=== PATIENT | male | born 1995 | race Caucasian/White ===

== ENCOUNTER 2019-11-16 08:53 | Outpatient (CLI) | payer BC, SELFPAY ==
--- NOTE | ~2019-11-16 | XR_ITS ---
EXAMINATION: XR abdomen/kub 1V INDICATION: Calculus of kidney TECHNIQUE: Supine views of the abdomen were obtained on 2 radiographs. COMPARISON: 06/17/2019 FINDINGS: Bowel contents project over the kidneys limiting sensitivity for renal stones. The previous ly described faint right kidney stone is not definitely identified. A moderate volume of colonic stoo l is present. There are no dilated loops of bowel. IMPRESSION: 1. No definite urinary tract calculi seen. Reviewed, dictated and finalized at location A. [place]
== END 2019-11-16 08:54 | disposition home or self-care (01) ==
LOC: ANHIMG 08:58
PROVIDERS: PCP Internal Medicine; Visit Provider Urology
DX: N20.0 Calculus of kidney (principal)
CPT/HCPCS: 74018

== ENCOUNTER 2020-03-16 03:32 | Emergency (ER) | payer BC, SELFPAY ==
--- NOTE | ~2020-03-16 | CT_ITS ---
EXAMINATION: CT abdomen pelvis wo con DATE: 03/16/2020 04:47 INDICATION: Left flank pain for one day. Nausea and vomiting. History of kidney stones. TECHNIQUE: Computed tomography (CT) of the abdomen and pelvis was performed without intravenous contr ast. Automated exposure control and iterative reconstruction technique were employed. Exam dose: 605 .21 mGy-cm total exam DLP. COMPARISON: 11/29/[address] abdomen pelvis FINDINGS: The lung bases are clear of infiltrate or consolidation. No pericardial or pleural effusion . No hepatic, splenic, pancreatic, adrenal or renal space-occupying mass lesion is evident. Mild spleno megaly, spleen measuring up to 14.1 cm height. The gallbladder is present. No bile duct or pancreatic duct dilatation. There are 2 punctate nonobstructing right renal stones. There is a 5.5 x 8 mm obstructing stone of the left ureter at the L4 level with moderate proximal hyd roureteronephrosis. Small fat-containing umbilical hernia. No suspicious osteolytic or osteoblastic lesions are noted. There are shotty nonenlarged mesenteric lymph nodes. Normal caliber of the abdominal aorta. The urinary bladder is unremarkable. No bowel obstruction or intraperitoneal free air. No CT evidence of appendicitis. IMPRESSION: 5.5 x 8 mm obstructing stone of the left ureter at L4 level with moderate proximal left hydroureteronephrosis Nonobstructive right nephrolithiasis Mild splenomegaly Reviewed, dictated and finalized at Location A. Reviewed, dictated and finalized at location A. IMPRESSION: 5.5 x 8 mm obstructing stone of the left ureter at L4 level with m oderate proximal left hydroureteronephrosis Nonobstructive right nephrolithiasis Mild splenomegaly
[2020-03-16 03:38] VITALS: BP 153/87; PULSE 74; RESP 19; TEMP 36.2; O2SAT 100
--- NOTE | 2020-03-16 03:44 | ED.GENADULT ---
HPI - General Adult General Chief complaint: Abdominal Pain Stated complaint: another kidney stone attack Time Seen by Provider: 03/16/20 03:38 History of Present Illness HPI narrative: Patient is a 24-year-old male who presents ER with left-sided flank pain. Began yesterday. Try to get in with urology but did not hear back. Symptoms have increased tonight and are causing him to be very nauseated. Had some mild chills when vomiting. No fevers/sweats/urinary frequency/urgency. No blood in urine. No aggravating or alleviating factors. Related Data Allergies Allergy/AdvReac Type Severity Reaction Status Date / Time No Known Allergies Allergy Unknown Verified 07/11/19 18:59 No Known Allergies Allergy Uncoded 07/11/19 18:59 Review of Systems Review of Systems: All systems reviewed & are unremarkable except as noted in HPI and below Constitutional: Constitutional: Reports chills, Denies fever(s) and Denies weakness Gastrointestinal: Gastrointestinal: Reports abdominal pain, Reports nausea and Reports vomiting Genitourinary: Genitourinary: Denies hematuria, Denies dysuria and Denies urinary frequency PMFSH Past Medical History Medical History (Updated 03/16/20 @ 06:07 by Nayan Dugan MD) Kidney stones Surgical History Surgical History (Updated 03/16/20 @ 03:51 by Nayan Dugan MD) No pertinent past surgical history Social History Social History (Updated 03/16/20 @ 03:51 by Nayan Dugan MD) Smoking status: Never smoker Gender identity (if verbalized by the patient): Male Exam Narrative: Exam Narrative: GENERAL: Uncomfortable-appearing, well-nourished, and in no acute distress. HEAD: Normocephalic, atraumatic. CHEST: Clear to auscultation. No respiratory distress. HEART: Regular rate and rhythm. Normal peripheral pulses. ABDOMEN: Soft, nontender, nondistended. EXTREMITIES: Normal range of motion. No edema. NEURO: Alert and oriented x3. PSYCH: Normal mood and affect. Course Course Emergency Course: Pain improved with morphine and Dilaudid. Feels comfortable with discharge. Informed of results. Vital Signs Vital signs: Vital Signs Temperature 97.1 F L 03/16/20 03:38 Pulse Rate 74 03/16/20 03:38 Respiratory Rate 19 03/16/20 03:38 Blood Pressure 153/87 H 03/16/20 03:38 Pulse Oximetry 100 03/16/20 03:38 Temperature 97.1 F L 03/16/20 03:38 Pulse Rate 59 L 03/16/20 06:01 Respiratory Rate 18 03/16/20 06:01 Blood Pressure 134/71 03/16/20 06:01 Pulse Oximetry 100 03/16/20 06:01 Medical Decision Making Vital Signs Vital Signs: Vital Signs Temperature 97.1 F L 03/16/20 03:38 Pulse Rate 74 03/16/20 03:38 Respiratory Rate 19 03/16/20 03:38 Blood Pressure 153/87 H 03/16/20 03:38 Pulse Oximetry 100 03/16/20 03:38 Temperature 97.1 F L 03/16/20 03:38 Pulse Rate 59 L 03/16/20 06:01 Respiratory Rate 18 03/16/20 06:01 Blood Pressure 134/71 03/16/20 06:01 Pulse Oximetry 100 03/16/20 06:01 Lab Data Result diagrams: 03/16/20 03:47 03/16/20 03:48 Labs: Lab Results 03/16/20 03/16/20 03/16/20 Range/Units 03:47 03:48 03:48 WBC 5.6 (4.5-10.0) K/mm3 RBC 5.11 (4.6-6.20) M/mm3 Hgb 14.7 (14.0-18.0) g/dL Hct 42.5 (42.0-52.0) % MCV 83.2 (80-100) fl MCH 28.8 (26-34) pg MCHC 34.6 (32-36) g/dl RDW 12.9 (11.5-14.5) % Plt Count 283 (150-375) k/mm3 MPV 9.3 (7.4-10.4) fl Immature Gran % (Auto) 0.2 (0-0.5) % Neut % (Auto) 54.2 (45.5-73.1) % Lymph % (Auto) 29.4 (18.3-44.2) % Gem % (Auto) 13.0 H (2.6-8.5) % Eos % (Auto) 2.8 (0-4.4) % Baso % (Auto) 0.4 (0.2-1.2) % Lymph # (Auto) 1.65 (0.9-3.2) K/mm3 Gem # (Auto) 0.7 H (0.1-0.6) K/mm3 Eos # (Auto) 0.2 (0-0.3) K/mm3 Baso # (Auto) 0.0 (0.0-0.1) K/mm3 Abs Immat Gran (auto) 0.01 (0.00-0.031) K/mm3 Absolute Neuts (auto) 3.1 (1.3-6.7) K/mm3 A
[2020-03-16] MEDS: SODIUM CHLORIDE 0.9% IV 1,000 ML 999 ML IV CONT (03:45)
[2020-03-16] MEDS: ONDANSETRON INJ 4 MG/2 ML VIAL IV PUSH (03:45)
[2020-03-16] MEDS: MORPHINE SULFATE 4 MG/ML INJ IV PUSH (03:45)
[2020-03-16 03:56] LABS: Basophils Percent Auto 0.4 % (0.2-1.2); Eosinophils Absolute Auto 0.2 K/mm3 (0-0.3); Eosinophils Percent Auto 2.8 % (0-4.4); Hematocrit 42.5 % (42.0-52.0); Hemoglobin 14.7 g/dL (14.0-18.0); Immature Granulocyte Absolute 0.01 K/mm3 (0.00-0.031); Immature Granulocyte Percent A 0.2 % (0-0.5); Lymphocytes Absolute Auto 1.65 K/mm3 (0.9-3.2); Lymphocytes Percent Auto 29.4 % (18.3-44.2); Mean Corpuscular HGB Conc 34.6 g/dl (32-36); Mean Corpuscular Hemoglobin 28.8 pg (26-34); Mean Corpuscular Volume 83.2 fl (80-100); Mean Platelet Volume 9.3 fl (7.4-10.4); Monocytes Absolute Auto 0.7 K/mm3 (0.1-0.6); Neutrophils Absolute Auto 3.1 K/mm3 (1.3-6.7); Neutrophils Percent Auto 54.2 % (45.5-73.1); Platelet Count Result 283 k/mm3 (150-375); Red Blood Count 5.11 M/mm3 (4.6-6.20); Red Cell Distribution Width 12.9 % (11.5-14.5); White Blood Count 5.6 K/mm3 (4.5-10.0)
[2020-03-16 04:08] LABS: Add Urine Microscopic? YES; Alanine Aminotransferase 23 U/L (4-50); Albumin Level 4.3 g/dL (3.5-5.1); Alkaline Phosphatase 79 U/L (38-126); Appearance Urine Clear (Clear); Aspartate Amino Transferase 27 U/L (17-59); Bilirubin Urine Negative (Negative); Bilirubin,Total 0.5 mg/dL (0.2-1.3); Blood Urea Nitrogen 14 mg/dL (9-20); Blood Urine 3+ (Negative); Calcium 8.7 mg/dL (8.4-10.2); Calcium Oxalate Crystals Urine Present /hpf; Carbon Dioxide 29 mmol/L (22-30); Chloride 103 mmol/L (98-107); Color Urine Yellow (Yellow); Estimated CRCL calculation 155 ml/min; Estimated Glomerular Filt Rate > 60; Glucose 114 mg/dL (75-110); Glucose Urine UA Negative (Negative); Ketones Urine Negative (Negative); Leukocyte Esterase Ur Negative LEU/UL (Negative); Lipase 283 U/L (23-300); Mucus Urine Few /lpf; Nitrate Urine Negative (Negative); Potassium 3.5 mmol/L (3.4-5.0); Protein Urine 2+ mg/dL (Negative); RBC Urine >75 /hpf (0-2); Sodium 138 mmol/L (137-145); Specific Grav Ur 1.027 (1.001-1.035); Squamous Epithelial Cell Urine Rare /hpf (Few); Urobilinogen Urine Negative mg/dL (<2.0); WBC Urine 0-3 /hpf
[2020-03-16 05:05] VITALS: BP 152/77; PULSE 62; RESP 19; O2SAT 100
[2020-03-16 05:38] VITALS: BP 154/76; PULSE 71; RESP 18; O2SAT 100
[2020-03-16 06:01] VITALS: BP 134/71; PULSE 59; RESP 18; O2SAT 100
[2020-03-16 06:34] VITALS: BP 144/80; PULSE 62; RESP 19; TEMP 37; O2SAT 100
== END 2020-03-16 06:35 | disposition home or self-care (01) ==
PROVIDERS: Emergency Provider Emergency Medicine; PCP Internal Medicine
DX: N13.2 Hydronephrosis with renal and ureteral calculous obstruction (principal); R16.1 Splenomegaly, not elsewhere classified
CPT/HCPCS: 36415; 74176; 80053; 81001; 83690; 85025; 96361; 96374; 96375; 99284; J1170; J2270; J2405; J2550; J7030

== ENCOUNTER 2020-03-17 01:45 | Day surgery (SDC) | payer BC, SELFPAY ==
[2020-03-16 15:00] VITALS: BMI 33.5
--- NOTE | 2020-03-16 15:45 | P.HP_ITS ---
History of Present Illness History of Present Illness Consent: Risks, benefits, and alternatives have been discussed and questions answered. Patient agrees to proceed with procedure. Chief complaint: left kidney stone Narrative: Jomar Lambert is a 24 year old male well know to me with multiple recurrent renal and ureteral stones. After a 3-day diarrhea illness with dehydration he presents with an 8mm left proximal ureteral stone. Review of Systems Cardiovascular: Cardiovascular: Denies chest pain, Denies lightheadedness, Denies palpitations and Denies dyspnea Respiratory: Respiratory: Denies dyspnea Gastrointestinal: Gastrointestinal: Denies diarrhea, Denies nausea and Denies vomiting Genitourinary: Genitourinary: Denies hematuria and Denies dysuria Endocrine: Endocrine: Denies palpitations PMFSH Past Medical History Medical History Kidney stones Surgical History Surgical History No pertinent past surgical history Social History Social History Smoking status: Never smoker Gender identity (if verbalized by the patient): Male Meds Home Medications and Allergies Home Medications Medication Instructions Recorded Confirmed Type hydrocodone-acetaminophen 1 tablet PO Q6H PRN #20 tablet 03/16/20 03/16/20 Rx ondansetron 4 mg PO Q6H PRN #10 tablet 03/16/20 03/16/20 Rx tamsulosin 0.4 mg PO DAILY #7 cap 03/16/20 03/16/20 Rx Allergies Allergy/AdvReac Type Severity Reaction Status Date / Time No Known Allergies Allergy Unknown Verified 03/16/20 15:01 Exam Const: General: no acute distress Resp: Effort & Inspection: normal respiratory effort GI: Inspection: non-distended GI Palp: No abdominal tenderness and No Guarding due to palpation present (GI) Auscultation: normal bowel sounds Assessment and Plan Assessment and plan (1) Ureterolithiasis: Code(s): N20.1 - Calculus of ureter Status: Acute Assessment and Plan: * Left ESWL
[2020-03-17] VITALS (7 sets, daily range): BP systolic 129–144; BP diastolic 62–79; PULSE 55–77; RESP 14–20; TEMP 36.3; O2SAT 98–100
--- NOTE | ~2020-03-17 | XR_ITS ---
EXAMINATION: XR abdomen/kub 1V DATE: 03/17/2020 08:43 INDICATION: Left ureteral stone for preoperative evaluation for planned lithotripsy. TECHNIQUE: A supine view of the abdomen on 2 radiographs was obtained. COMPARISON: CT dated 03/16/2020 FINDINGS: 7 x 3 mm left ureteral stone has advanced, now located in the distal ureter projecting slightly later al to the lower sacrum. Normal bowel gas pattern. Bone island in the right innominate bone. IMPRESSION: 1. 7 x 3 mm left renal stone has advanced, now in the distal ureter. Reviewed, dictated and finalized at location A.
--- NOTE | 2020-03-17 06:48 | WPDHPUPDATE1 ---
History and Physical Update Update Date/Time: 03/17/20 06:48 History and Physical has been reviewed, including an updated exam of the patient. There are NO changes in the patient's condition. Risks, benefits, and alternatives have been discussed and questions answered. Patient agrees to proceed with procedure.
--- NOTE | 2020-03-17 07:47 | WPDANESEPPF ---
Anes - Initial Pre Proc Eval Procedure: Operation Date: 03/17/20 10:30 Proposed Procedures p Left Extracorporeal Shock Wave Lithotripsy - Arsenio Ewing MD Date/Time: 03/17/20 07:47 Surgeon: Arsenio Ewing MD Pre Op Diagnosis: left kidney stone Patient Data Age: 24 Gender: M Height: 1.8 m Weight: 108.86 kg Allergies Allergy/AdvReac Type Severity Reaction Status Date / Time No Known Allergies Allergy Unknown Verified 03/16/20 15:01 Home Medications Medication Instructions Recorded Confirmed Type hydrocodone-acetaminophen 1 tablet PO Q6H PRN #20 tablet 03/16/20 03/16/20 Rx ondansetron 4 mg PO Q6H PRN #10 tablet 03/16/20 03/16/20 Rx tamsulosin 0.4 mg PO DAILY #7 cap 03/16/20 03/16/20 Rx Patient hx anesthesia problems: none Family hx anesthesia problems: none PMFSH Past Medical History Medical History (Updated 03/17/20 @ 07:49 by Philipp Dickerson MD) CML (chronic myelocytic leukemia) Kidney stones Obesity Surgical History Surgical History No pertinent past surgical history Social History Social History Smoking status: Never smoker Gender identity (if verbalized by the patient): Male Anes - Eval Final PreProcedure Day of Procedure 03/17/20 07:47 Patient weight: obese Heart: regular rate and rhythm Lungs: clear to auscultation and normal air movement Airway: Mallampati scale class II Neurological: alert and oriented Last oral intake: >/= 8 hours ASA classification: III Emergent: no Anesthetic plan: proceed Anesthesia type and monitoring: general LMA Informed Consent: The patient's anesthetic plan and its attendant risks and benefits were discussed with the patient/family/POA. Questions were solicited and answers provided to the satisfaction of the patient/family/POA.
[2020-03-17] MEDS: LACTATED RINGERS 1,000 ML 30 ML IV CONT (09:15)
[2020-03-17 09:44] LABS: INR 1.1; Prothrombin Time 13.6 Seconds (11.1-14.7)
[2020-03-17 09:46] LABS: Partial Thromboplastin Time 33.3 SECONDS (22.3-36.8)
[2020-03-17] MEDS: ceFAZolin 2 GM/D5W 50 ML 2 GM/50 ML BAG IVPB (11:00)
--- NOTE | 2020-03-17 11:20 | PM.PROC ---
Procedure Note - Detailed Date of procedure: 03/17/20 Pre-op diagnosis: left kidney stone Post-op diagnosis: same Procedure performed: Left ESWL Description of procedure: The patient was brought to the operative suite where he was placed in the supine position on the Dornier lithotripsy table. The focal point of the lithotripter was placed at an 8mm left distal ureteral calculus. A total of 3000 shocks were delivered at a power setting of 8. There appeared to be good fragmentation of the stone. The patient tolerated the procedure well and was taken to the recovery room in good condition. Anesthesia: GLMA Surgeon: Arsenio Ewing MD Estimated blood loss (mL): 0 Drains: No Packing: No Pathology: yes Complications: No immediate complications Condition: stable Disposition: PACU
== END 2020-03-17 13:20 | disposition home or self-care (01) ==
PROVIDERS: PCP Internal Medicine; Visit Provider Urology
PROC: (CPT 50590; principal; 2020-03-17 10:30)
DX: N20.2 Calculus of kidney with calculus of ureter (principal)
CPT/HCPCS: 50590; 36415; 74018; 85610; 85730; J0690; J1100; J2250; J2405; J2704; J3010; J7120

== ENCOUNTER 2020-03-30 13:47 | Observation (INO) | payer BC, SELFPAY ==
--- NOTE | ~2020-03-30 | XR_ITS ---
EXAMINATION: XR retrograde pyelo w/stent LT DATE: 03/31/2020 11:55 INDICATION: Left ureteral stone. TECHNIQUE: 6 intraoperative fluoroscopic views of the abdomen and pelvis were obtained. I was not pre sent. Fluoroscopy exposure time was 30 seconds. COMPARISON: Abdomen radiographs 03/30/2020 FINDINGS: There are no dilated loops of bowel. Images demonstrate contrast and a wire in the left ure ter. The final images demonstrate a left internal ureteral stent in expected position. IMPRESSION: 1. Left internal ureteral stent in expected position. Reviewed, dictated and finalized at location A.
--- NOTE | ~2020-03-30 | XR_ITS ---
EXAMINATION: XR abdomen/kub 1V DATE: 03/30/2020 17:13 INDICATION: Kidney stone. Abdominal pain. TECHNIQUE: A supine view of the abdomen on 2 radiographs was obtained. COMPARISON: CT abdomen and pelvis 03/16/2020 FINDINGS: There are no dilated loops of bowel. There is a 5 x 7 mm stone in distal left ureter. IMPRESSION: 1. 5 x 7 mm stone in distal left ureter. Reviewed, dictated and finalized at location A.
[2020-03-30 14:47] VITALS: BP 139/78; PULSE 76; RESP 16; TEMP 37.3; O2SAT 97
[2020-03-30 15:02] LABS: Basophils Percent Auto 0.5 % (0.2-1.2); Eosinophils Absolute Auto 0.2 K/mm3 (0-0.3); Hematocrit 47.3 % (42.0-52.0); Immature Granulocyte Absolute 0.01 K/mm3 (0.00-0.031); Immature Granulocyte Percent A 0.1 % (0-0.5); Lymphocytes Absolute Auto 2.03 K/mm3 (0.9-3.2); Lymphocytes Percent Auto 24.1 % (18.3-44.2); Mean Corpuscular HGB Conc 33.8 g/dl (32-36); Mean Corpuscular Hemoglobin 28.4 pg (26-34); Mean Platelet Volume 9.1 fl (7.4-10.4); Monocytes Absolute Auto 0.8 K/mm3 (0.1-0.6); Monocytes Percent Auto 8.9 % (2.6-8.5); Neutrophils Absolute Auto 5.4 K/mm3 (1.3-6.7); Neutrophils Percent Auto 64.4 % (45.5-73.1); Platelet Count Result 307 k/mm3 (150-375); Red Blood Count 5.63 M/mm3 (4.6-6.20); Red Cell Distribution Width 13.3 % (11.5-14.5); White Blood Count 8.4 K/mm3 (4.5-10.0)
[2020-03-30 15:06] LABS: Add Urine Microscopic? YES; Appearance Urine Clear (Clear); Bacteria Urine Trace /hpf; Bilirubin Urine Negative (Negative); Blood Urine 1+ (Negative); Color Urine Yellow (Yellow); Glucose Urine UA Negative (Negative); Ketones Urine Negative (Negative); Leukocyte Esterase Ur Negative LEU/UL (Negative); Mucus Urine Rare /lpf; Nitrate Urine Negative (Negative); Protein Urine Negative (Negative); Specific Grav Ur 1.019 (1.001-1.035); Urobilinogen Urine Negative mg/dL (<2.0); WBC Urine 0-3 /hpf
[2020-03-30 15:13] LABS: Alanine Aminotransferase 21 U/L (4-50); Albumin Level 4.8 g/dL (3.5-5.1); Alkaline Phosphatase 87 U/L (38-126); Aspartate Amino Transferase 28 U/L (17-59); Bilirubin,Total 0.5 mg/dL (0.2-1.3); Blood Urea Nitrogen 12 mg/dL (9-20); Calcium 9.2 mg/dL (8.4-10.2); Carbon Dioxide 27 mmol/L (22-30); Chloride 103 mmol/L (98-107); Estimated CRCL calculation 140 ml/min; Estimated Glomerular Filt Rate > 60; Glucose 110 mg/dL (75-110); Lipase 58 U/L (23-300); Sodium 139 mmol/L (137-145)
[2020-03-30] MEDS: ONDANSETRON INJ 4 MG/2 ML VIAL (16:17)
--- NOTE | 2020-03-30 16:17 | PC.NURSE ---
Per [facility] EDP Dr Shelby, pt given Zofran 4MG IVP due to N/V in WR.
--- NOTE | 2020-03-30 16:30 | ED.ABDPAIN ---
HPI - Abdominal Pain General Chief Complaint: Abdominal Pain Stated Complaint: kidney stone Time Seen by Provider: 03/30/20 16:30 Source: patient and family Mode of arrival: ambulatory Limitations: no limitations History of Present Illness HPI narrative: Patient is a 24-year-old with a history of nephrolithiasis, well-known to this emergency department who presents for evaluation of left flank pain. Patient reports left flank pain over the past several hours, sharp and stabbing in nature with radiation to the left lower abdomen. No associated hematuria. Patient has had associated nausea and vomiting. No upper abdominal pain. Patient tried to take his last pain medication tablet at home and then vomited. Patient has not been able to tolerate any oral intake today. Patient follows with Dr. Ewing and with recent CT scan and lithotripsy for left nephrolithiasis. Related Data Allergies Allergy/AdvReac Type Severity Reaction Status Date / Time No Known Allergies Allergy Unknown Verified 03/30/20 14:50 Review of Systems Review of Systems: Narrative: CONSTITUTIONAL: Denies fever CARDIOVASCULAR: Denies chest pain RESPIRATORY: Denies cough or dyspnea. GASTROINTESTINAL: Denies abdominal pain, reports left flank pain, reports nausea vomiting SKIN: Denies rash MUSCULOSKELETAL: Reports left flank pain NEUROLOGIC: Denies headache PMFSH Past Medical History Medical History CML (chronic myelocytic leukemia) Kidney stones Obesity Surgical History Surgical History No pertinent past surgical history Social History Social History Smoking status: Never smoker Gender identity (if verbalized by the patient): Male Exam Narrative: Exam Narrative: GENERAL: Awake, alert, uncomfortable appearing HEAD: Normocephalic, atraumatic. EYES: PERRLA and EOMI. ENT: Nares clear, no rhinorrhea or epistaxis. Mucous membranes moist. NECK: Supple. CHEST: No respiratory distress, breathing even and non labored HEART: Regular rate, sinus rhythm ABDOMEN:Non distended, non tender EXTREMITIES: Normal range of motion. No edema. SKIN: Warm, dry, no rash. NEURO:No focal deficits. Alert and oriented x3 Course Vital Signs Vital signs: Vital Signs Temperature 37.3 C 03/30/20 14:47 Pulse Rate 76 03/30/20 14:47 Respiratory Rate 16 03/30/20 14:47 Blood Pressure 139/78 03/30/20 14:47 Pulse Oximetry 97 03/30/20 14:47 Temperature 37.3 C 03/30/20 14:47 Pulse Rate 76 03/30/20 14:47 Respiratory Rate 16 03/30/20 14:47 Blood Pressure 139/78 03/30/20 14:47 Pulse Oximetry 97 03/30/20 14:47 MDM - Abdominal Pain MDM Narrative Medical decision making narrative: Patient presenting for evaluation of left flank pain in the setting of known nephrolithiasis. The time of initial assessment, ABCs are intact and vital signs are stable. Physical exam is relatively reassuring. IV access obtained and labs are drawn. Patient was given IV fluids, antiemetics, pain medication with some improvement in his symptoms but he required recurrent dosing in the ER for pain management and nausea. Laboratory results show no severe leukocytosis, acute kidney injury, urinalysis is not consistent with urinary tract infection. Patient has a left distal ureteral stone 5 x 7 mm. Given recurrent pain and need for IV pain medication, patient will like to stay overnight, Dr. Torres was consulted and will admit the patient. Patient will be made n.p.o. at midnight started on IV maintenance fluids. He was ordered pain medication and nausea medication. Differential Diagnosis Differential diagnosis: Likely abdominal pain, calculus of kidney, gastroenteritis and pancreatitis Medical Records Attestation: I reviewed the patient's medical records. Lab Data Attestation: I reviewed the patient's lab re
[2020-03-30] MEDS: MORPHINE SULFATE 4 MG/ML INJ IV PUSH (16:44)
[2020-03-30] MEDS: ONDANSETRON INJ 4 MG/2 ML VIAL IV PUSH ×2 (16:44→20:52)
[2020-03-30] MEDS: SODIUM CHLORIDE 0.9% IV 1,000 ML 999 ML IV CONT (17:15)
[2020-03-30 19:10] VITALS: BP 124/80; PULSE 80; RESP 20; O2SAT 99
[2020-03-30 20:52] VITALS: BP 124/80; PULSE 80; RESP 20; TEMP 36.7; O2SAT 99
--- NOTE | 2020-03-30 20:54 | ADMGEN ---
This patient, Jomar Lambert, was admitted to Medical Room 340-01. Patient/family oriented to hospital policies and general routines including ID bracelet, bed and alarms, visiting hours, pain management, procedures, bathroom and other care routines, personal items, smoking policy, room service/diet, and visiting hours. Valuables list has been completed. Information on how to activate the Rapid Response Team has been discussed. Patient/Family are encouraged to report perceived risks to care and to ask questions if they do not understand what they are told or what they should do.
[2020-03-30 20:56] VITALS: BP 153/89; PULSE 67; RESP 16; TEMP 37.3; O2SAT 100
[2020-03-30 21:01] VITALS: BMI 34.8
[2020-03-30] MEDS: SODIUM CHLORIDE 0.9% IV 1,000 ML 125 ML IV CONT (21:51)
[2020-03-31] VITALS (10 sets, daily range): BP systolic 97–161; BP diastolic 51–84; PULSE 52–83; RESP 14–18; TEMP 36.3–36.9; O2SAT 97–100
[2020-03-31] MEDS: ONDANSETRON INJ 4 MG/2 ML VIAL IV PUSH ×3 (02:18→09:46)
[2020-03-31] MEDS: SODIUM CHLORIDE 0.9% IV 1,000 ML 125 ML IV CONT (06:09)
--- NOTE | 2020-03-31 07:03 | PC.NURSE ---
intake before mid noc
--- NOTE | 2020-03-31 07:04 | PM.IMHP ---
H&P: HPI History of Present Illness Chief complaint: Renal Colic Narrative: Jomar Lambert is a 24 year old male with exhaustive history of urolithiasis s/p ESWL for 5x7mm left distal stone 2 weeks ago that has failed to fracture and pass - now causing intractable pain. Review of Systems Cardiovascular: Cardiovascular: Denies chest pain, Denies lightheadedness, Denies palpitations and Denies dyspnea Respiratory: Respiratory: Denies dyspnea Gastrointestinal: Gastrointestinal: Denies diarrhea, Denies nausea and Denies vomiting Genitourinary: Genitourinary: Denies hematuria and Denies dysuria Endocrine: Endocrine: Denies palpitations PMFSH Past Medical History Medical History CML (chronic myelocytic leukemia) Kidney stones Obesity Surgical History Surgical History No pertinent past surgical history Social History Social History Smoking status: Never smoker Second hand tobacco smoke exposure: No Alcohol intake: never Substance use: never Gender identity (if verbalized by the patient): Male Spiritual care concerns: No Meds Home Medications and Allergies Home Medications Medication Instructions Recorded Confirmed Type hydrocodone-acetaminophen 1 - 2 tablet PO Q6H PRN #20 tablet 03/17/20 Rx Allergies Allergy/AdvReac Type Severity Reaction Status Date / Time No Known Allergies Allergy Unknown Verified 03/30/20 14:50 Vital Signs Vital Signs - 24 hr 03/30/20 14:47 03/30/20 19:10 03/30/20 20:52 Temperature 99.2 F 98.0 F Pulse Rate 76 80 80 Respiratory Rate 16 20 20 Blood Pressure 139/78 124/80 124/80 Pulse Oximetry 97 99 99 03/30/20 20:56 03/31/20 06:00 Temperature 99.1 F 98.5 F Pulse Rate 67 83 Respiratory Rate 16 16 Blood Pressure 153/89 H 154/84 H Pulse Oximetry 100 100 Exam Const: General: no acute distress Resp: Effort & Inspection: normal respiratory effort GI: Inspection: non-distended GI Palp: No abdominal tenderness and No Guarding due to palpation present (GI) Auscultation: normal bowel sounds H&P: Results Labs Labs: Short CBC 03/30/20 Range/Units 14:52 WBC 8.4 (4.5-10.0) K/mm3 Hgb 16.0 (14.0-18.0) g/dL Hct 47.3 (42.0-52.0) % Plt Count 307 (150-375) k/mm3 BMP 03/30/20 14:52 Sodium 139 Potassium 4.0 Chloride 103 Carbon Dioxide 27 BUN 12 Creatinine 0.90 Glucose 110 Calcium 9.2 Liver Function 03/30/20 Range/Units 14:52 Total Bilirubin 0.5 (0.2-1.3) mg/dL AST 28 (17-59) U/L ALT 21 (4-50) U/L Alkaline Phosphatase 87 (38-126) U/L Albumin 4.8 (3.5-5.1) g/dL Urine 03/30/20 Range/Units 14:53 Urine Color Yellow (Yellow) Urine Appearance Clear (Clear) Urine pH 6.0 (5.0-9.0) Ur Specific [place] 1.019 (1.001-1.035) Urine Protein Negative (Negative) mg/dL Urine Glucose (UA) Negative (Negative) mg/dL Assessment and Plan Assessment and plan (1) Left ureteral stone: Code(s): N20.1 - Calculus of ureter Status: Acute Assessment and Plan: Cystoscopy, left ureteroscopy with laser lithotripsy, stone extracton and possible stent placement.
--- NOTE | 2020-03-31 09:02 | PC.NURSE ---
Patient to OR per stretcher. Report to LESA Orellana. Consent signed and in the chart.
[2020-03-31] MEDS: LACTATED RINGERS 1,000 ML 30 ML IV CONT ×2 (09:20→12:01)
--- NOTE | 2020-03-31 09:41 | WPDANESEPPF ---
Anes - Initial Pre Proc Eval Procedure: Operation Date: 03/31/20 10:30 Proposed Procedures p Cystoscopy, Left Ureteroscopy, Left Stone Extraction, Left Stent Placement - Fermin Butt MD s Holmium Laser Procedure - Fermin Butt MD Date/Time: 03/31/20 09:41 Surgeon: Shaq Torres MD Pre Op Diagnosis: Renal Colic Patient Data Age: 24 Gender: M Height: 5 ft 11 in Weight: 113.3 kg Last Vital Signs Temp 36.5 C 03/31/20 09:25 Pulse 64 03/31/20 09:25 Resp 16 03/31/20 06:00 BP 142/70 H 03/31/20 09:25 Pulse Ox 100 03/31/20 09:25 Allergies Allergy/AdvReac Type Severity Reaction Status Date / Time No Known Allergies Allergy Unknown Verified 03/30/20 14:50 Home Medications Medication Instructions Recorded Confirmed Type hydrocodone-acetaminophen 1 - 2 tablet PO Q6H PRN #20 tablet 03/17/20 Rx Laboratory Tests 03/30/20 03/30/20 03/30/20 14:52 14:52 14:53 WBC 8.4 K/mm3 K/mm3 (4.5-10.0) RBC 5.63 M/mm3 M/mm3 (4.6-6.20) Hgb 16.0 g/dL g/dL (14.0-18.0) Hct 47.3 % % (42.0-52.0) MCV 84.0 fl fl (80-100) MCH 28.4 pg pg (26-34) MCHC 33.8 g/dl g/dl (32-36) RDW 13.3 % % (11.5-14.5) Plt Count 307 k/mm3 k/mm3 (150-375) MPV 9.1 fl fl (7.4-10.4) Immature Gran % (Auto) 0.1 % % (0-0.5) Neut % (Auto) 64.4 % % (45.5-73.1) Lymph % (Auto) 24.1 % % (18.3-44.2) [place] % (Auto) 8.9 % H % (2.6-8.5) Eos % (Auto) 2.0 % % (0-4.4) Baso % (Auto) 0.5 % % (0.2-1.2) Lymph # (Auto) 2.03 K/mm3 K/mm3 (0.9-3.2) [place] # (Auto) 0.8 K/mm3 H K/mm3 (0.1-0.6) Eos # (Auto) 0.2 K/mm3 K/mm3 (0-0.3) Baso # (Auto) 0.0 K/mm3 K/mm3 (0.0-0.1) Abs Immat Gran (auto) 0.01 K/mm3 K/mm3 (0.00-0.031) Absolute Neuts (auto) 5.4 K/mm3 K/mm3 (1.3-6.7) Absolute Nucleated RBC 0.0 K/mm3 K/mm3 (0.0-0.012) Nucleated RBC % 0.0 % % (0.0-0.2) Sodium 139 mmol/L mmol/L (137-145) Potassium 4.0 mmol/L mmol/L (3.4-5.0) Chloride 103 mmol/L mmol/L (98-107) Carbon Dioxide 27 mmol/L mmol/L (22-30) BUN 12 mg/dL mg/dL (9-20) Creatinine 0.90 mg/dL mg/dL (0.7-1.3) Estim Creat Clear Calc 140 ml/min ml/min Estimated GFR > 60 (59 - ) Glucose 110 mg/dL mg/dL (75-110) Calcium 9.2 mg/dL mg/dL (8.4-10.2) Total Bilirubin 0.5 mg/dL mg/dL (0.2-1.3) AST 28 U/L U/L (17-59) ALT 21 U/L U/L (4-50) Alkaline Phosphatase 87 U/L U/L (38-126) Total Protein 8.0 g/dL g/dL (6.3-8.2) Albumin 4.8 g/dL g/dL (3.5-5.1) Lipase 58 U/L U/L (23-300) Urine Color Yellow (Yellow) Urine Appearance Clear (Clear) Urine pH 6.0 (5.0-9.0) Ur Specific [place] 1.019 (1.001-1.035) Urine Protein Negative mg/dL mg/dL (Negative) Urine Glucose (UA) Negative mg/dL mg/dL (Negative) Urine Ketones Negative mg/dL mg/dL (Negative) Ur Blood (Man) 1+ H (Negative) Urine Nitrate Negative (Negative) Urine Bilirubin Negative (Negative) Urine Urobilinogen Negative mg/dL mg/dL (<2.0) Leukocyte Esterase Rfl Negative REJI/UL REJI/UL (Negative) Urine RBC 6-10 /hpf H /hpf (0-2) Urine WBC 0-3 /hpf /hpf Urine Bacteria Trace /hpf /hpf Hyaline Casts 3-4 /lpf H /lpf (None) Urine Mucus Rare /lpf /lpf Patient hx anesthesia problems: none Family hx anesthesia problems: none PMFSH Past Medical History Medical History CML (chronic myelocytic leukemia) Kidney stones Obesity Surgical
[2020-03-31] MEDS: FAMOTIDINE 20 MG/2 ML VIAL IV PUSH (09:45)
[2020-03-31] MEDS: ceFAZolin 2 GM/D5W 50 ML 2 GM/50 ML BAG IVPB (11:06)
[2020-03-31] MEDS: LIDOCAINE HCL 2% GEL UROJET 10 ML PKG MUCOUS MEM (11:27)
--- NOTE | 2020-03-31 11:55 | PM.PROC ---
Procedure Note - Detailed Date of procedure: 03/31/20 Pre-op diagnosis: Renal Colic 7 mm left ureteral calculus with colic Post-op diagnosis: same Procedure performed: Cystoscopy, left retrograde pyelogram, left ureteroscopy, holmium laser of left ureteral calculus, left stone extraction, left ureteral stent placement 4.8 Andorran contour Description of procedure: Patient was taken to the operative suite and correctly identified. Once anesthesia was obtained he was placed in a dorsal lithotomy position and prepped and draped usual sterile fashion. Twenty-two Andorran scope was inserted into the bladder in direct vision. A guidewire was placed in the orifice. The ureter was dilated with an 810 dilator. A rigid ureteral scope was then inserted into the orifice. The stone was visualized but was too large to retrieve in 1 piece. We placed an escape basket around it and then used a 270 micron fiber to fragment the stone into multiple pieces. The largest pieces were then retrieved and sent for analysis. The ureter was reinspected. He did have some edema down where the stone was lodged. As such pyelogram was performed to confirm placement of the stent. A 4.8 Andorran contour stent was then placed with the proximal end coiled in the renal pelvis and the distal end in the bladder. Bladder was drained. 2% viscous lidocaine was inserted into the urethra patient was taken recovery room stable condition. If he does well postoperatively be discharged home from the floor later this afternoon. In follow-up in a week's time for stent removal. Anesthesia: GLMA Surgeon: Fermin Butt MD Drains: Yes Packing: No Pathology: yes Complications: No immediate complications Condition: stable Disposition: PACU
--- NOTE | 2020-03-31 12:34 | SUR.PHASEI ---
1210- asleep with oral airway. left flank without bruising. minimal redness to left flank.
--- NOTE | 2020-03-31 13:18 | PC.NURSE ---
Patient returned from OR per stretcher. Report received per LESA Harding.
--- NOTE | 2020-05-11 12:46 | PM.DS ---
DS: Admitting Diagnosis Admitting Diagnosis Admitting Diagnosis: Renal Colic DS: Discharge Diagnosis Discharge Diagnosis (1) Left ureteral stone: Code(s): N20.1 - Calculus of ureter Status: Acute DS: Summary Time Spent with Patient Time attestation: Total time spent providing and/or coordinating discharge services: Uneventful hospital course s/p stone extraction. DS: Data Data Completed and Pending Completed studies during hospitalization: Pending at discharge 03/31/20 11:50 Surgical [PTH] Routine Discharge Plan Discharge Attending physician on discharge: Fermin Butt Consulting providers: Arsenio Ewing ; Magdy Thompson V. Discharging Clinician: Fermin Butt Patient Disposition: Home, Self-Care Activity: january shower Diet: regular Discharge Instructions: Follow-up next week for stent removal. Call for appointment. Patient Instructions: Antibiotic Form, Kidney Stones (DC), Pain Management (DC) Stand Alone Forms: General Discharge Information Follow-up/Referrals: Fermin Butt MD [Physician] - Discharge Medications: New oxybutynin chloride 5 mg tablet 5 mg PO TID PRN (Reason: bladder spasms) Qty: 15 RF: 0 hydrocodone-acetaminophen 5-325 mg tablet 1 - 2 tablet PO Q6H PRN (Reason: pain) Qty: 20 RF: 0 Date of admission: 03/30/20 18:24 Primary Care Provider: Guilherme Burr Admitting Provider: Shaq Torres Discharge Date/Time: 03/31/20 16:10 Attending physician on admission: Fermin Butt Condition: Stable
== END 2020-03-31 16:10 | disposition home or self-care (01) ==
LOC: ANHED 18:31 → ANH3MED 20:54
PROVIDERS: Emergency Medicine; Admitting Provider Urology; Emergency Provider Emergency Medicine; PCP Internal Medicine; Visit Provider Urology
PROC: (CPT 52352; principal; 2020-03-31 10:30)
PROC: (CPT 52356; 2020-03-31 10:30)
DX: N20.1 Calculus of ureter (principal); E66.9 Obesity, unspecified; Z68.34 Body mass index [BMI] 34.0-34.9, adult
CPT/HCPCS: 52356; 36415; 74018; 74420; 80053; 81001; 82365; 83690; 85025; 88300; 96361; 96365; 96374; 96375; 96376; 99285; A9270; C1769; C2617; G0378; J0131; J0330; J0690; J1100; J1170; J2250; J2270; J2405; J2704; J3010; J7030; J7120; Q9966

== ENCOUNTER 2020-04-05 12:56 | Outpatient (CLI) | payer BC, SELFPAY ==
--- NOTE | ~2020-04-05 | XR_ITS ---
XR abdomen/kub 1V 04/05/2020 13:21 Indication: Renal stone Procedure: KUB Comparison: Comparison to multiple prior studies sequentially, with oldest reviewed study dated 06/17. Findings: Bowel gas pattern is nonobstructive. Left internal ureteral stent in expected position. No abnormal calcifications. No acute osseous abnormality. Impression: 1: No acute abdominal abnormality. Reviewed, dictated and finalized at location B. Impression: 1: No acute abdominal abnormality.
== END 2020-04-05 12:57 | disposition home or self-care (01) ==
PROVIDERS: PCP Internal Medicine; Visit Provider Urology
DX: N20.0 Calculus of kidney (principal)
CPT/HCPCS: 74018

== ENCOUNTER 2020-04-18 09:39 | Outpatient (CLI) | payer BC, SELFPAY ==
--- NOTE | ~2020-04-18 | XR_ITS ---
EXAMINATION: XR abdomen/kub 1V INDICATION: Left ureteral stone TECHNIQUE: Supine views of the abdomen were obtained on 2 radiographs. COMPARISON: 04/05/2020 FINDINGS: The previously described left internal ureteral stent has been removed. No urinary tract ca lculi are identified. The bowel gas pattern is normal. IMPRESSION: 1. No urolithiasis identified. Reviewed, dictated and finalized at location B.
== END 2020-04-18 09:40 | disposition home or self-care (01) ==
PROVIDERS: PCP Internal Medicine; Visit Provider Urology
DX: N20.1 Calculus of ureter (principal)
CPT/HCPCS: 74018

== ENCOUNTER 2020-05-15 07:56 | Outpatient (CLI) | payer BC, SELFPAY ==
--- NOTE | ~2020-05-15 | XR_ITS ---
EXAMINATION: XR abdomen/kub 1V DATE: 05/15/2020 08:19 INDICATION: Calculus of kidney. Follow-up. TECHNIQUE: A supine view of the abdomen on 2 radiographs was obtained. COMPARISON: CT abdomen and pelvis 03/16/2020 FINDINGS: There are no dilated loops of bowel. There is no visible urolithiasis. IMPRESSION: 1. No visible urolithiasis. Reviewed, dictated and finalized at location B. IMPRESSION: 1. No visible urolithiasis.
== END 2020-05-15 07:57 | disposition home or self-care (01) ==
LOC: ANHIMG 08:05
PROVIDERS: PCP Internal Medicine; Visit Provider Urology
DX: N20.0 Calculus of kidney (principal)
CPT/HCPCS: 74018

== ENCOUNTER 2020-08-25 09:22 | Outpatient (CLI) | payer BC, SELFPAY ==
--- NOTE | ~2020-08-25 | XR_ITS ---
XR abdomen/kub 1V 08/25/2020 09:37 INDICATION: Left ureteral stone PROCEDURE: KUB COMPARISON: Comparison to multiple prior studies sequentially, with oldest reviewed study dated 05/2020. FINDINGS: Fracture, dislocation or subluxation is not identified. The soft tissues appear within norm al limits. No foreign bodies are identified. IMPRESSION: 1: NO ACUTE BONE OR JOINT ABNORMALITY IDENTIFIED. Reviewed, dictated and finalized at location B. D EQUIPMENT MECHANIC
== END 2020-08-25 09:23 | disposition home or self-care (01) ==
PROVIDERS: PCP Internal Medicine; Visit Provider Urology
DX: N20.1 Calculus of ureter (principal)
CPT/HCPCS: 74018

== ENCOUNTER 2021-02-23 09:02 | Outpatient (CLI) | payer BC, SELFPAY ==
--- NOTE | ~2021-02-23 | XR_ITS ---
EXAMINATION: XR abdomen/kub 1V DATE: 02/23/2021 09:13 INDICATION: Calculus of kidney. TECHNIQUE: A supine view of the abdomen on 2 radiographs was obtained. COMPARISON: CT abdomen and pelvis 03/16/2020 FINDINGS: There are no dilated loops of bowel. There is no visible urolithiasis. IMPRESSION: 1. No visible urolithiasis. Reviewed, dictated and finalized at location A. IMPRESSION: 1. No visible urolithiasis.
== END 2021-02-23 09:03 | disposition home or self-care (01) ==
LOC: ANHIMG 09:04
PROVIDERS: PCP Internal Medicine; Visit Provider Urology
DX: N20.0 Calculus of kidney (principal)
CPT/HCPCS: 74018

== ENCOUNTER 2021-08-27 08:18 | Outpatient (CLI) | payer BC, SELFPAY ==
--- NOTE | ~2021-08-27 | XR_ITS ---
EXAMINATION: XR abdomen/kub 1V INDICATION: Calculus of the kidney TECHNIQUE: Supine views of the abdomen were obtained on 2 radiographs. COMPARISON: 02/23/2021 FINDINGS: No urolithiasis is identified. The bowel gas pattern is normal. A moderate volume of coloni c stool is present. IMPRESSION: 1. No urolithiasis identified. Reviewed, dictated and finalized at location A. LE APPLICATION ENGINEER
== END 2021-08-27 08:19 | disposition home or self-care (01) ==
LOC: ANHIMG 08:21
PROVIDERS: PCP Internal Medicine; Visit Provider Urology
DX: N20.0 Calculus of kidney (principal)
CPT/HCPCS: 74018

== ENCOUNTER 2021-11-10 11:14 | Emergency (ER) | payer BC, SELFPAY ==
[2021-11-10 11:23] VITALS: BP 154/87; PULSE 85; RESP 16; TEMP 37; O2SAT 100
--- NOTE | 2021-11-10 11:26 | ED.WOUNDLAC ---
HPI - Wound/Laceration General Chief Complaint: Wound/Laceration Stated Complaint: Left pointer finger injury Time Seen by Provider: 11/10/21 11:22 Source: patient Mode of arrival: ambulatory Limitations: no limitations History of Present Illness HPI narrative: 26-year-old male presented for complaint of laceration to left index finger, onset about an hour prior to arrival. Cut it on a saw. He states he quickly wrapped it with paper towels to control the bleeding. He is up-to-date on his tetanus vaccine. Denies loss of sensation or movement. He is not on blood thinners. History of renal stones and CML. Related Data Home Medications Medication Instructions Recorded Confirmed bosutinib [Bosulif] 300 mg PO DAILY 11/10/21 hydrochlorothiazide 25 mg PO DAILY 11/10/21 11/10/21 Allergies Allergy/AdvReac Type Severity Reaction Status Date / Time No Known Allergies Allergy Unknown Verified 11/10/21 11:29 Review of Systems Review of Systems: CONSTITUTIONAL: Denies body aches, fever, chills, or sweats. EYES: Denies visual changes, redness, or discharge. ENT: Denies rhinorrhea, congestion, sore throat, or otalgia. CARDIOVASCULAR: Denies chest pain, palpitations, or edema. RESPIRATORY: Denies cough or dyspnea. GASTROINTESTINAL: Denies abdominal pain, nausea, vomiting, or diarrhea. GENITOURINARY: Denies dysuria or hematuria. SKIN: left index finger laceration MUSCULOSKELETAL: Denies back pain, joint pain, or myalgia. NEUROLOGIC: Denies headache, numbness, tingling, or weakness. PSYCH: Denies depression or anxiety. [facility] Past Medical History Medical History (Updated 11/10/21 @ 11:32 by Dee Dave APRN) CML (chronic myelocytic leukemia) Kidney stones Obesity Surgical History Surgical History No pertinent past surgical history Social History Social History Smoking status: Never smoker Second hand tobacco smoke exposure: No Alcohol intake: never Substance use: never Gender identity (if verbalized by the patient): Male Spiritual care concerns: No Comments At time of signature, I have reviewed and agree with nursing past medical, surgical, social and family history unless otherwise noted. Please see nursing chart for further information. There is no relevant family history pertinent to the presenting complaint Exam Narrative: GENERAL: Well-appearing, well-nourished, and in no acute distress. HEAD: Normocephalic, atraumatic. EYES: PERRLA, conjunctivae clear, and EOMI. ENT: Mucous membranes moist. Oropharynx without edema, erythema or lesions. NECK: Supple. No lymphadenopathy CHEST: Clear to auscultation. No respiratory distress. HEART: Regular rate and rhythm. SKIN: Warm, dry. left hand 2nd digit distal finger tip with approx 1cm lac and flap, well approximated, bleeding controlled, sensation and motor intact cap refill <3sec; no nail involvement NEURO: Alert and oriented x3. PSYCH: Normal mood and affect Course Course Emergency Course: Laceration repair to left 2nd digit with steri strips/glue, after cleansed, pt tolerated well. No FB found. Patient is aware of diagnosis, understands and agrees to treatment plan. Anticipatory guidance given. Patient agrees to follow-up as directed and is aware of reasons to seek care at the emergency department. Portions of this record may have been created with voice recognition software Level of Care: Express Care Visit Vital Signs Vital signs: Vital Signs Temperature 98.6 F 11/10/21 11:23 Pulse Rate 85 11/10/21 11:23 Respiratory Rate 16 11/10/21 11:23 Blood Pressure 154/87 H 11/10/21 11:23 Pulse Oximetry 100 11/10/21 11:23 Temperature 98.6 F 11/10/21 11:23 Pulse Rate 85 11/10/21 11:23 Respiratory Rate 16 11/10/21 11:23 Blood Pressure 154/87 H 11/10/21 11:23 Pulse Oximetry 100 11/10/21 11:23 Reviewed
== END 2021-11-10 11:49 | disposition home or self-care (01) ==
PROVIDERS: Emergency Provider Nurse Practitioner Family; PCP Internal Medicine
DX: S61.211A Laceration without foreign body of left index finger without damage to nail, initial encounter (principal); W27.0XXA Contact with workbench tool, initial encounter; C92.10 Chronic myeloid leukemia, BCR/ABL-positive, not having achieved remission; E66.9 Obesity, unspecified; Z68.34 Body mass index [BMI] 34.0-34.9, adult
CPT/HCPCS: 12001; 99213; G0463

== ENCOUNTER 2022-05-13 08:01 | Outpatient (CLI) | payer BC, SELFPAY ==
--- NOTE | ~2022-05-13 | XR_ITS ---
EXAMINATION: XR abdomen/kub 1V DATE: 05/13/2022 08:17 INDICATION: Calculus of kidney TECHNIQUE: A supine view of the abdomen on 2 radiographs was obtained. COMPARISON: 08/27/2021 FINDINGS: Mild stool and gas: Which decreases sensitivity for tiny renal stones or portion of the lower poles o f both kidneys. No evident urolithiasis. No dilated loops of bowel to suggest obstruction. Lung bases are clear. Heart size is normal. Bones are unremarkable. IMPRESSION: 1. Normal bowel gas pattern. No evident urolithiasis. Reviewed, dictated and finalized at location A.
== END 2022-05-13 08:02 | disposition home or self-care (01) ==
PROVIDERS: PCP Internal Medicine; Visit Provider Urology
DX: N20.0 Calculus of kidney (principal)
CPT/HCPCS: 74018

== ENCOUNTER 2023-04-07 02:09 | Day surgery (SDC) | payer BC, SELFPAY ==
[2023-03-24 16:16] VITALS: BMI 36.3
--- NOTE | 2023-04-04 14:32 | PM.HPGS ---
History of Present Illness History of Present Illness Consent: Risks, benefits, and alternatives have been discussed and questions answered. Patient agrees to proceed with procedure. Chief complaint: melena Narrative: Jomar Lambert is a 27 year old male who has been noticing red blood with bowel movements. The blood is primarily on toilet paper. He is on oral chemotherapy for CML. Review of Systems Review of Systems: All systems reviewed & are unremarkable except as noted in HPI and below PMFSH Past Medical History Medical History CML (chronic myelocytic leukemia) Kidney stones Obesity Surgical History Surgical History No pertinent past surgical history Social History Social History Smoking status: Never smoker Second hand tobacco smoke exposure: No Alcohol intake: never Substance use: never Substance use type: does not use Lack of Transportation: No Lack of Food: Never True Current Housing: I Have Housing Concerned About Future Housing: No Difficulty Paying Gas/Electric Bills: No Difficulty Paying for Meds: No Currently Unemployed: No Education: High School Diploma/GED Difficulty w/ Childcare or Family Care: No Living arrangements: with family Gender identity (if verbalized by the patient): Male Spiritual care concerns: No Meds Home Medications and Allergies Home Medications Medication Instructions Recorded Confirmed Type bosutinib 100 mg tablet (Bosulif) 300 mg PO DAILY 11/10/21 04/07/23 History Allergies Allergy/AdvReac Type Severity Reaction Status Date / Time No Known Allergies Allergy Unknown Verified 04/07/23 08:11 Exam Const: General: alert and obese Orientation/consciousness: patient oriented x3 Resp: Auscultation: clear to auscultation bilaterally Cardio: Rhythm: regular rhythm GI: GI Palp: Yes Soft to palpation and No Tenderness to palpation present (GI) Neuro: General: patient oriented x3 Assessment and Plan Assessment and plan (1) Hematochezia: Code(s): K92.1 - Melena Status: Acute Assessment and Plan: Colonoscopy with possible biopsy or polypectomy or cautery or injection of substances.
[2023-04-07 08:12] VITALS: BP 143/74; PULSE 64; RESP 16; TEMP 36; O2SAT 100; BMI 35.9
[2023-04-07] MEDS: LACTATED RINGERS 1,000 ML 150 ML IV CONT (08:24)
--- NOTE | 2023-04-07 09:02 | WPDANESEPPF ---
Anes - Initial Pre Proc Eval Procedure: Operation Date: 04/07/23 09:30 Proposed Procedures p Colonoscopy - Kailash Pierre MD Date/Time: 04/07/23 09:02 Surgeon: Kailash Pierre MD Pre Op Diagnosis: melena Patient Data Age: 27 Gender: M Height: 1.8 m Weight: 116.8 kg Last Vital Signs Temp 96.8 F L 04/07/23 08:12 Pulse 64 04/07/23 08:12 Resp 16 04/07/23 08:12 BP 143/74 H 04/07/23 08:12 Pulse Ox 100 04/07/23 08:12 O2 Del Method Room Air 04/07/23 08:12 Allergies Allergy/AdvReac Type Severity Reaction Status Date / Time No Known Allergies Allergy Unknown Verified 04/07/23 08:11 Home Medications Medication Instructions Recorded Confirmed Type bosutinib 100 mg tablet (Bosulif) 300 mg PO DAILY 11/10/21 04/07/23 History Patient hx anesthesia problems: none Family hx anesthesia problems: none Results Review: All pre-operative results and documents have been reviewed as part of the pre-operative evaluation. [facility] Past Medical History Medical History CML (chronic myelocytic leukemia) Kidney stones Obesity Surgical History Surgical History No pertinent past surgical history Social History Social History Smoking status: Never smoker Second hand tobacco smoke exposure: No Alcohol intake: never Substance use: never Substance use type: does not use Lack of Transportation: No Lack of Food: Never True Current Housing: I Have Housing Concerned About Future Housing: No Difficulty Paying Gas/Electric Bills: No Difficulty Paying for Meds: No Currently Unemployed: No Education: High School Diploma/GED Difficulty w/ Childcare or Family Care: No Living arrangements: with family Gender identity (if verbalized by the patient): Male Spiritual care concerns: No Anes - Eval Final PreProcedure Day of Procedure 04/07/23 09:02 Patient weight: obese Heart: regular rate and rhythm Lungs: clear to auscultation Airway: Mallampati scale class II Neurological: alert and oriented Last oral intake: >/= 8 hours ASA classification: III Emergent: no Anesthetic plan: proceed Anesthesia type and monitoring: general GIVS and standard monitoring Results Review: All pre-operative results and documents have been reviewed as part of the pre-operative evaluation. Informed Consent: The patient's anesthetic plan and its attendant risks and benefits were discussed with the patient/family/POA. Questions were solicited and answers provided to the satisfaction of the patient/family/POA.
[2023-04-07 09:37] VITALS: BP 98/50; PULSE 73; RESP 16; O2SAT 100
[2023-04-07 09:47] VITALS: BP 98/74; PULSE 67; RESP 21; O2SAT 100
[2023-04-07 09:57] VITALS: BP 111/64; PULSE 72; RESP 18; O2SAT 100
== END 2023-04-07 09:58 | disposition home or self-care (01) ==
PROVIDERS: PCP Nurse Practitioner Family; Visit Provider Internal Medicine Gastroenterology
PROC: 0DJD8ZZ Inspection of Lower Intestinal Tract, Via Natural or Artificial Opening Endoscopic (ICD-10-PCS; CPT 45378; principal; 2023-04-07 09:30)
DX: K92.1 Melena (principal); K64.8 Other hemorrhoids; E66.8 Other obesity; Z68.35 Body mass index [BMI] 35.0-35.9, adult; C92.10 Chronic myeloid leukemia, BCR/ABL-positive, not having achieved remission
CPT/HCPCS: 45378; J2704; J7120

== ENCOUNTER 2023-04-15 14:47 | Outpatient (CLI) | payer BC, SELFPAY ==
--- NOTE | ~2023-04-15 | XR_ITS ---
XR abdomen/kub 1V 04/15/2023 15:09 Indication: Renal stone Procedure: KUB Comparison: 05/13/2022 Findings: Bowel gas pattern nonobstructive. Moderate colonic fecal loading. There is a right renal st one measuring approximately 4 mm.. No acute osseous abnormality. Impression: 1: Right nephrolithiasis measuring approximately 4 mm. Reviewed, dictated and finalized at location A. Impression: 1: Right nephrolithiasis measuring approximately 4 mm.
== END 2023-04-15 14:48 | disposition home or self-care (01) ==
PROVIDERS: PCP Nurse Practitioner Family; Visit Provider Urology
DX: N20.0 Calculus of kidney (principal)
CPT/HCPCS: 74018

== ENCOUNTER 2023-04-18 04:00 | Day surgery (SDC) | payer BC, SELFPAY ==
[2023-04-16 10:35] VITALS: BMI 36.2
--- NOTE | 2023-04-16 10:38 | PC.NURSE ---
Report to the Outpatient Waiting Room, entrance under the green pavilion located off [facility], at time 9:30 on date 04/18/23. Planned Procedure Time: 11:30. Time changes happen often and if your time is changed the preop area will call you the afternoon before. - You and your visitor will be asked to self-screen and do not enter if you have any COVID symptoms. - A mask is optional within the hospital at this time. Patients may have clear liquids (water, carbonated beverages, clear teas, apple juice) until 3 hours prior to surgery with a maximum of 20 ounces. - No food from midnight until time of surgery Take the following medications with a SIP of water the morning of surgery: N/A DO NOT STOP ANY OF YOUR OTHER PRESCRIPTION MEDICATIONS PRIOR TO SURGERY ?EXCEPT THE FOLLOWING Medications to discontinue per physician: N/A Date to take last dose: N/A Please no make-up, nail serbian, hairspray, perfume, deodorant, or body powder the day of surgery. No jewelry (including any body piercings) or valuables the day of surgery, leave them at home. Please take a shower or bath the night before, or the morning of, surgery with an antibacterial soap. Wear comfortable, loose fitting clothing. - Jewelry must be removed prior to entering the operating room. Rings and piercings that are not removed may be cut off. - The hospital will not accept responsibility for valuables. - Please leave all valuables, including medications, at home the day of surgery. If you are going home after surgery, a licensed scoop driver must drive you home. - NO public transportation without another adult if you receive anesthesia. - We recommend that an adult stay with you for 24 hours following discharge. - We also recommend that you do not drive, make important decision, drink alcoholic beverages, or take any drugs that were not prescribed by your health care provider for at least 24 hours after your discharge time. Follow any additional instructions given to you from your surgeon. If you or anyone in your household have experienced Covid symptoms in the past week, please notify your surgeon or the nurse liaison at the phone number below for possible testing. Telephone instructions given to PT - OLU SALVADOR and asked if any additional questions and then verbalized understanding. Patient advised to call surgeon office or pre surgery nurse liaison [phone] if any additional questions.
--- NOTE | 2023-04-17 09:20 | WPDANESEPPF ---
Anes - Initial Pre Proc Eval Procedure: Operation Date: 04/18/23 11:30 Proposed Procedures p Right Extracorporeal Shock Wave Lithotripsy - Arsenio Ewing MD Date/Time: 04/17/23 09:20 Surgeon: Arsenio Ewing MD Pre Op Diagnosis: Right Renal Stone Patient Data Age: 27 Gender: M Height: 1.8 m Weight: 117.9 kg Allergies Allergy/AdvReac Type Severity Reaction Status Date / Time No Known Allergies Allergy Unknown Verified 04/18/23 10:04 Home Medications Medication Instructions Recorded Confirmed Type bosutinib 100 mg tablet (Bosulif) 300 mg PO HS 11/10/21 04/18/23 History Patient hx anesthesia problems: none Family hx anesthesia problems: none Results Review: All pre-operative results and documents have been reviewed as part of the pre-operative evaluation. [facility] Past Medical History Medical History (Updated 04/18/23 @ 10:35 by Dallas Stevens DO) CML (chronic myelocytic leukemia) remission Kidney stones Obesity Surgical History Surgical History No pertinent past surgical history Social History Social History Smoking status: Never smoker Second hand tobacco smoke exposure: No Alcohol intake: never Substance use: never Substance use type: does not use Lack of Transportation: No Lack of Food: Never True Current Housing: I Have Housing Concerned About Future Housing: No Difficulty Paying Gas/Electric Bills: No Difficulty Paying for Meds: No Currently Unemployed: No Education: High School Diploma/GED Difficulty w/ Childcare or Family Care: No Living arrangements: with family Gender identity (if verbalized by the patient): Male Spiritual care concerns: No Anes - Eval Final PreProcedure Day of Procedure 04/17/23 09:20 Patient weight: obese Heart: regular rate and rhythm Lungs: clear to auscultation Airway: Mallampati scale class II Neurological: alert and oriented Last oral intake: >/= 8 hours ASA classification: II Emergent: no Anesthetic plan: proceed Anesthesia type and monitoring: general LMA and standard monitoring Results Review: All pre-operative results and documents have been reviewed as part of the pre-operative evaluation. Informed Consent: The patient's anesthetic plan and its attendant risks and benefits were discussed with the patient/family/POA. Questions were solicited and answers provided to the satisfaction of the patient/family/POA.
[2023-04-18] VITALS (10 sets, daily range): BP systolic 101–147; BP diastolic 43–78; PULSE 56–71; RESP 12–16; TEMP 36.4–37; O2SAT 99–100
--- NOTE | ~2023-04-18 | XR_ITS ---
Supine and upright views of the abdomen Clinical history: Lithotripsy COMPARISON: 04/15/2023 Findings: Bowel gas pattern is nonspecific. No evidence for obstruction or free air. 4 mm right-sided stone present. Osseous structures are intact. Impression: Stable 4 mm right-sided stone. Reviewed, dictated and finalized at [facility]. Impression: Stable 4 mm right-sided stone.
--- NOTE | 2023-04-18 06:49 | WPDHPUPDATE1 ---
History and Physical Update Update Date/Time: 04/18/23 06:49 History and Physical has been reviewed, including an updated exam of the patient. There are NO changes in the patient's condition. Risks, benefits, and alternatives have been discussed and questions answered. Patient agrees to proceed with procedure.
[2023-04-18] MEDS: LACTATED RINGERS 1,000 ML 30 ML IV CONT (10:32)
[2023-04-18] MEDS: ceFAZolin 2 GM/D5W 50 ML 2 GM/50 ML BAG IVPB (10:44)
[2023-04-18 10:49] LABS: Prothrombin Time 14.2 Seconds (11.1-14.7)
[2023-04-18 10:50] LABS: Partial Thromboplastin Time 34.9 SECONDS (22.3-36.8)
--- NOTE | 2023-04-18 10:54 | W.PM.PROC2 ---
Procedure Note - Detailed Date of Procedure 04/18/23 Pre-op Diagnosis Right Renal Stone Post-op Diagnosis Same Procedure Performed Right ESWL Surgeon Arsenio Ewing MD Anesthesia General Description of Procedure The patient was brought to the operative suite where he was placed in the supine position on the Dornier lithotripsy table. The focal point of the lithotripter was placed at a 4-5mm right renal calculus. A total of 2500 shocks were delivered at a power setting of 4. There appeared to be good fragmentation of the stone. The patient tolerated the procedure well and was taken to the recovery room in good condition. Drains No Packing No Pathology None sent Complications No immediate complications Condition Stable Disposition PACU
[2023-04-18] MEDS: KETOROLAC 30 MG/ML VIAL (*BKC) IV PUSH (11:00)
[2023-04-18] MEDS: fentaNYL CITRATE INJ (*CRX) 100 MCG/2 ML VIAL 25 MCG IV PUSH ×2 (11:56→12:10)
[2023-04-18] MEDS: oxyCODONE HCL (*CRX) 5 MG TAB IR PO (12:41)
== END 2023-04-18 13:19 | disposition home or self-care (01) ==
PROVIDERS: PCP Nurse Practitioner Family; Visit Provider Urology
PROC: (CPT 50590; principal; 2023-04-18 11:30)
DX: N20.0 Calculus of kidney (principal); C92.11 Chronic myeloid leukemia, BCR/ABL-positive, in remission; E66.9 Obesity, unspecified; Z68.36 Body mass index [BMI] 36.0-36.9, adult
CPT/HCPCS: 50590; 36415; 74018; 85610; 85730; A9270; J0690; J1100; J1885; J2250; J2405; J2704; J3010; J7120

== ENCOUNTER 2023-04-29 11:46 | Outpatient (CLI) | payer BC, SELFPAY ==
--- NOTE | ~2023-04-29 | XR_ITS ---
Supine and upright views of the abdomen Clinical history: Renal stone COMPARISON: 04/10/2023 Findings: Bowel gas pattern is nonspecific. No evidence for obstruction or free air. No abnormal mass lesion or calcification is seen. Osseous structures are intact. Impression: No significant abnormality is seen. Reviewed, dictated and finalized at [facility]. Impression: No significant abnormality is seen.
== END 2023-04-29 11:47 | disposition home or self-care (01) ==
PROVIDERS: PCP Nurse Practitioner Family; Visit Provider Urology
DX: N20.0 Calculus of kidney (principal)
CPT/HCPCS: 74018

== ENCOUNTER 2023-05-10 09:05 | Emergency (ER) | payer BC, SELFPAY ==
[2023-05-10 09:06] VITALS: BP 161/80; PULSE 74; RESP 16; TEMP 36.7; O2SAT 100
[2023-05-10 10:01] VITALS: BP 157/88
--- NOTE | 2023-05-10 10:15 | ED.GENADULT ---
[facility] - General Adult General Chief complaint: Headache Stated complaint: headache, rashes and back pain Time Seen by Provider: 05/10/23 09:42 Source: patient Mode of arrival: ambulatory Limitations: no limitations History of Present Illness HPI narrative: This is a 27-year-old male with PMH of CML who presents to the ED with multiple complaints. He reports 2 days of a bilateral headache with slow onset. Reports it is similar to previous migraines he has had in the past. He also reports he has had some right-sided lower back pain that will occasionally radiate into the right thigh. He states this is more of a chronic issue but has been worse in the past week. He also reports that for the past 2 days he has had a erythematous rash to the right thigh. He has tried steroid cream and IcyHot and that seemed to make the rash worse and caused some blisters. He states it is irritating at times but not overtly painful or itchy. He states his most bothersome symptom at this point is the headache. Reports temperature of 100 ?F yesterday but no fevers today. Denies chills, nausea, vomiting, chest pain, shortness of breath, cough, abdominal pain, urinary symptoms. Related Data Home Medications Medication Instructions Recorded Confirmed bosutinib 100 mg tablet (Bosulif) 300 mg PO HS 11/10/21 04/18/23 Allergies Allergy/AdvReac Type Severity Reaction Status Date / Time No Known Allergies Allergy Unknown Verified 05/10/23 09:25 Review of Systems Review of Systems: All systems as dictated in [facility] Past Medical History Medical History (Updated 05/10/23 @ 11:44 by Elias Pacheco PA-C) CML (chronic myelocytic leukemia) remission Kidney stones Obesity Surgical History Surgical History No pertinent past surgical history Social History Social History Smoking status: Never smoker Second hand tobacco smoke exposure: No Alcohol intake: never Substance use: never Substance use type: does not use Lack of Transportation: No Lack of Food: Never True Current Housing: I Have Housing Concerned About Future Housing: No Difficulty Paying Gas/Electric Bills: No Difficulty Paying for Meds: No Currently Unemployed: No Education: High School Diploma/GED Difficulty w/ Childcare or Family Care: No Living arrangements: with family Gender identity (if verbalized by the patient): Male Spiritual care concerns: No Exam Narrative: GENERAL: Well-appearing, well-nourished, and in no acute distress. HEAD: Normocephalic, atraumatic. EYES: PERRLA and EOMI. ENT: Nares clear, no rhinorrhea or epistaxis. Mucous membranes moist. Oropharynx without tonsillar hypertrophy exudate or other lesions. NECK: Supple. No adenopathy or masses. CHEST: No respiratory distress. Clear to auscultation. No wheezes rales or rhonchi HEART: Regular rate and rhythm. No murmur heard. Normal peripheral pulses. ABDOMEN: Soft, nontender, nondistended, normal active bowel sounds. MSK: Normal range of motion. No edema. No midline spine tenderness. Mild right SI joint tenderness. SKIN: Right thigh with vesicular patches of erythematous rash. Minimally painful. Negative Nikolsky sign. Does not cross midline. NEURO: Alert and oriented x3. No focal deficits. PSYCH: Normal mood and affect. Course Course Emergency Course: Reevaluation 1146: Patient states back pain and headache are feeling much better. Rash remains the same and is nonpainful. Vital Signs Vital signs: Vital Signs Temperature 98.1 F 05/10/23 09:06 Pulse Rate 74 05/10/23 09:06 Respiratory Rate 16 05/10/23 09:06 Blood Pressure 161/80 H 05/10/23 09:06 Pulse Oximetry 100 05/10/23 09:06 Temperature 98.1 F 05/10/23 09:06 Pulse Rate 74 05/10/23 09:06 Respiratory Rate 18 05/10/23 11:02 Blood Pressure 140/54 L 05/10/23 11
[2023-05-10] MEDS: KETOROLAC 15 MG/ML VIAL (*BKC) IV PUSH (10:30)
[2023-05-10] MEDS: SODIUM CHLORIDE 0.9% IV 1,000 ML 999 ML IV CONT (10:30)
[2023-05-10] MEDS: diphenhydrAMINE HCl INJ 50 MG/ML VIAL 25 MG IV PUSH (10:30)
[2023-05-10] MEDS: PROCHLORPERAZINE EDISYLATE 10 MG/2 ML VIAL IV PUSH (10:30)
[2023-05-10 10:36] LABS: Basophils Percent Auto 0.5 % (0.2-1.2); Eosinophils Absolute Auto 0.2 K/mm3 (0-0.3); Eosinophils Percent Auto 1.7 % (0-4.4); Hematocrit 44.5 % (42.0-52.0); Hemoglobin 14.8 g/dL (14.0-18.0); Immature Granulocyte Absolute 0.03 K/mm3 (0.00-0.031); Immature Granulocyte Percent A 0.3 % (0-0.5); Lymphocytes Absolute Auto 1.58 K/mm3 (0.9-3.2); Lymphocytes Percent Auto 18.2 % (18.3-44.2); Mean Corpuscular HGB Conc 33.3 g/dl (32-36); Mean Corpuscular Hemoglobin 28.8 pg (26-34); Mean Corpuscular Volume 86.7 fl (80-100); Mean Platelet Volume 9.2 fl (7.4-10.4); Monocytes Absolute Auto 1.1 K/mm3 (0.1-0.6); Monocytes Percent Auto 12.1 % (2.6-8.5); Neutrophils Absolute Auto 5.8 K/mm3 (1.3-6.7); Neutrophils Percent Auto 67.2 % (45.5-73.1); Platelet Count Result 238 k/mm3 (150-375); Red Blood Count 5.13 M/mm3 (4.6-6.20); Red Cell Distribution Width 13.2 % (11.5-14.5); White Blood Count 8.7 K/mm3 (4.5-10.0)
[2023-05-10 10:49] LABS: Alanine Aminotransferase 24 U/L (6-50); Albumin Level 4.8 g/dL (3.5-5.1); Alkaline Phosphatase 65 U/L (38-126); Anion Gap 7 mmol/L (8-16); Aspartate Amino Transferase 25 U/L (17-59); Bilirubin,Total 0.8 mg/dL (0.2-1.3); Blood Urea Nitrogen 14 mg/dL (9-20); CRP 1.2 mg/dL (<1.0); Calcium 8.8 mg/dL (8.4-10.2); Carbon Dioxide 27 mmol/L (22-30); Chloride 104 mmol/L (98-107); Estimated CRCL calculation 161 ml/min; Estimated Glomerular Filt Rate > 60; Glucose 92 mg/dL (65-110); Potassium 4.5 mmol/L (3.4-5.0); Sodium 138 mmol/L (137-145)
[2023-05-10 11:02] VITALS: BP 140/54; RESP 18; O2SAT 100
== END 2023-05-10 11:55 | disposition home or self-care (01) ==
PROVIDERS: Emergency Provider Physician Assistant; PCP Nurse Practitioner Family
DX: B02.9 Zoster without complications (principal); R51.9 Headache, unspecified; C92.11 Chronic myeloid leukemia, BCR/ABL-positive, in remission; E66.9 Obesity, unspecified; Z68.36 Body mass index [BMI] 36.0-36.9, adult; Z87.442 Personal history of urinary calculi
CPT/HCPCS: 36415; 80053; 85025; 86140; 96361; 96374; 96375; 99284; J0780; J1200; J1885; J7030

== ENCOUNTER 2023-12-22 08:37 | Outpatient (CLI) | payer BC, SELFPAY ==
--- NOTE | ~2023-12-22 | XR_ITS ---
Supine and upright views of the abdomen Clinical history: Renal stone COMPARISON: 04/29/2023 Findings: Bowel gas pattern is nonspecific. No evidence for obstruction or free air. No abnormal mass lesion or calcification is seen. Osseous structures are intact. Impression: No significant abnormality is seen. Reviewed, dictated and finalized at [facility]. Impression: No significant abnormality is seen.
== END 2023-12-22 08:38 | disposition home or self-care (01) ==
LOC: ANHIMG 08:39
PROVIDERS: PCP Nurse Practitioner Family; Visit Provider Urology
DX: N20.0 Calculus of kidney (principal)
CPT/HCPCS: 74018

== ENCOUNTER 2024-03-22 13:13 | Outpatient (CLI) | payer BC, SELFPAY ==
--- NOTE | ~2024-03-22 | XR_ITS ---
XR abdomen/kub 1V Ordering provider: Arsenio Ewing MD History: . CALCULUS OF KIDNEY . Comparison: December 22, 2023 FINDINGS: BOWEL: Nonobstructive bowel gas pattern. ORGANOMEGALY: None. SIGNIFICANT PATHOLOGIC CALCIFICATIONS: None. OTHER: No free air is seen under the diaphragm. IMPRESSION: NO ACUTE ABDOMINAL FINDINGS. Reviewed, dictated and finalized at location A.
== END 2024-03-22 13:14 | disposition home or self-care (01) ==
PROVIDERS: PCP Nurse Practitioner Family; Visit Provider Urology
DX: N20.0 Calculus of kidney (principal)
CPT/HCPCS: 74018

== ENCOUNTER 2024-12-27 08:34 | Outpatient (CLI) | payer BC, SELFPAY ==
--- NOTE | ~2024-12-27 | XR_ITS ---
XR abdomen/kub 1V Ordering provider: Arsenio Ewing MD History: . CALCULUS OF KIDNEY . Comparison: March 22, 2024 FINDINGS: BOWEL: Nonobstructive bowel gas pattern. ORGANOMEGALY: None. SIGNIFICANT PATHOLOGIC CALCIFICATIONS: None. OTHER: No free air is seen under the diaphragm. IMPRESSION: NO ACUTE ABDOMINAL FINDINGS. If still Suspicious noncontrast CT is better for evaluation. Reviewed, dictated and finalized at location A.
--- OUTSIDE RECORDS SUMMARY | 2024-12-27 08:57 | XMS_ITS | Referral Summary ---
Author Organization [facility] Address [address] [place] [address] Care Team Providers Care Sustainability Consultant Name Role Phone Astrid Mae MD Unavailable [phone] Shaq Torres MD Unavailable Isaura Amaya NP Primary Care Provider [phone] Encounters Date Type Department Care Team Description 12/06/2024 9:30 AM CDT Lab [facility] [address] [place] [address] Chronic myeloid leukemia (HCC) 12/06/2024 10:00 AM CDT Office Visit [facility] [address] [place] [address] [address] [place] [phone] Batsheva Cook NP Chronic myeloid leukemia (HCC) (Primary Dx) from Last 3 Months Allergies No known active allergies Medications Bosulif 100 mg tabletIndicatio ns:Chronic myeloid leukemia (HCC) TAKE THREE TABLETS BY MOUTH EVERY DAY WITH FOOD. SWALLOW WHOLE. DO NOT CUT, CRUSH, OR BREAK. 84 tablet 3 10/21/2024 Active Active Problems Problem Noted Date Diagnosed Date Acute otitis media 09/02/2023 Upper respiratory infection 09/02/2023 Constipation 03/04/2023 Hematochezia 03/04/2023 Recurrent nephrolithiasis 03/04/2023 Assessment & Plan (03/17/2024 2:14 PM CDT): Follows yearly with Urology. No issues x 1-2 years. Calculus of kidney 09/24/2015 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[place] 09/24/2015 Chronic myeloid leukemia 11/01/2014 Assessment & Plan (03/17/2024 2:13 PM CDT): Patient follows with Dr Mae. Continues Bosutinib. 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 Calculus of kidney 04/13/2012 Arteriovenous disorder 11/14/2011 Immunizations Immunization Administration Dates Next Due DTaP 03/08/2002 IPV 03/08/2002 Influenza, Quadrivalent, Selam l Culture-based MDCK, Preservative Free, Antibiotic Free, Intramuscular 09/08/2020 Influenza, Unspecified 09/22/2023(Deferr ed: Patient Refused),09/22/2022(Deferred: Patient Refused) MMR 03/08/2002 Social History Tobacco Use Types Packs/Day Years Used Date Smoking Tobacco: Never Cigarettes Smokeless Tobacco: Never Tobacco Cessation:Counseling Given: Not Answered Alcohol Use Standard Drinks/Week Comments Yes 1 (1 standard drink = 0.6 oz pur e alcohol) AUDIT-C Answer Date Recorded Frequency of Alcohol Consumption Not on file 11/28/2023 Q2: How many drinks containi ng alcohol do you have on a typical day when you are drinking? Patient does not drink Frequency of Binge Drinking Not on file 04/2024 PHQ-2 Answer Date Recorded PHQ-2 Total Score (If total score is 3 or more points, staff should administer the PHQ-9) 0 03/17/2024 Sex and Gender Information Value Date Recorded Sex Assigned at Not on file Legal Sex Male 8:57 PM [employer] Gender Identity Male 09/08/2020 11:33 AM [employer] Sexual Orientation Not on file Last Filed Vital Signs Vital Sign Reading Time Taken Comments Blood Pressure 137/84 12/06/2024 9:40 AM CDT Pulse 71 12/06/2024 9:40 AM CDT Temperature 36.2 C (97.1 F) 12/06/2024 9:40 AM CDT Respiratory Rate 18 12/06/2024 9:40 AM CDT Oxygen Saturation 99% 12/06/2024 9:40 AM CDT Inhaled Oxygen Concentration - - Weight 121.6 kg (268 lb) 12/06/2024 9:40 AM CDT Height 180.3 cm (5' 11 ) 12/06/2024 9:40 AM CDT Body Mass Index 37.38 12/06/2024 9:40 AM CDT Plan of Treatment Not on file Procedures Procedure Name Priority Date/Time Associated Diagnosis Comments EGFR Routine 12/06/2024 9:20 AM CDT Chronic myeloid leukemia (HCC) DIFFERENTIAL AUTO Routine 12/06/2024 9:2 0 AM CDT Chronic myeloid leukemia (HCC) CBC WITH AUTO DIFFERENTIAL Routine 12/06/2024 9:20 AM CDT Chronic myeloid leukemia (HCC) COMPREHENSIVE METABOLIC PANEL Routine 12/06/2024 9:20 AM CDT Chronic myeloid leukemia (HCC) BCR/ABL P210 QUANTITATIVE, PCR Routine 12/06/2024 9:20 AM CDT Chronic myeloid leukemia (HCC) LACTATE DEHYDROGENASE Routine 12/06/2024 9:20 AM CDT Chronic myeloid leukemia (HCC) AMYLASE Routine 12/06/2024 9:20 AM CDT Chronic myeloid leukemia (HCC) LIPASE Routine 12/06/2024 9:20 AM CDT Chronic myeloid leukemia (HCC) HEPATITIS C ANTIBODY Routine 03/17/2024 2:13 PM CDT Encounter for hepatitis C screening test for low risk patient from Last 3 Months or Most Recently Relevant to Health Maintenance Results * (ABNORMAL) BCR/ABL p210 Quantitative, PCR (12/06/2024 9:20 AM CDT) BCR/ABL p210 Positive, below Lower Level of Quantification(A) [facility] Comment:Testing performed by : [facility], [address] [facility], [place]., [address] BCR/ABL p210 % (IS) <0.0032% R[facility]AN Comment:Testing performed by : [facility], [address] [place]., [address] BCR/ABL p210 Interpretation Positive: BCR::ABL1 major (p210) transcripts were detected below the lower level of quantification (LLOQ). [facility]YAN Comment:Testing performed by : [facility], [address] [place]., [address] BCR/ABL p210 Specimen Blood RYAN Comment:Testing performed by : [facility], [address] [place]., [address] BCR/ABL p210 Result Review Final report reviewed by: ANGEL Roberts, MB([facility]), [employer], on 12/07/2024 14:19:54 CDT. [facility] Comment: Interpretive Data A summary of previous BCR::ABL1 major quantitative RT-PCR results for this patient performed in the [facility] Molecular [facility]ostics Lab may be found as a cumulative laboratory report in the Results Review section of the Medical Record. Method: The quantitative BCR::ABL1 assay is performed on the GeneXpert ([employer]) platform. RNA is extracted, converted to cDNA, and BCR::ABL1 and ABL1 cDNA targets are quantified by real-time PCR amplification. Results are reported as the percentage ratio of BCR::ABL1 fusion transcripts to ABL1 transcripts (BCR::ABL1/ABL1) on the International Scale (White HE, 2010). A BCR::ABL1 value of 0.1% on the International Scale represents a major molecular response in CML (Hickory S, 2008). The analytical sensitivity of this assay is 0.0032% BCR::ABL1/ABL1. Due to assay non-linearity for the BCR::ABL1 p210 isoform at very high and low concentrations, results greater than 10% (above upper limit of quantification or ULOQ) will be reported as > 10% and results detected at less than 0.0032% (below lower limit of quantification or LLOQ) will be reported as < 0.0032% . Limitations: This test only detects the e13a2 and e14a2 BCR::ABL1 major isoforms. A negative result does not exclude the presence of the e1a2 (p190) BCR::ABL1 minor isoforms. False positive or negative results may occur with unusual BCR::ABL1 isoforms. FDA Comment: This test was developed and its performance characteristics determined by this Molecular Diagnostics Lab. Peripheral blood testing has been cleared by the U.S. Food and Drug Administration (FDA). Alternative specimen types, including extracted RNA or bone marrow aspirates have not been cleared or approved by the U.S. Food and Drug Administration. FDA does not require those modifications to go through premarket FDA review. This test is used for clinical purposes. It should not be regarded as investigational or for research. This laboratory is certified under the Clinical Laboratory Improvement Amendments (CLIA) as qualified to perform high complexity clinical laboratory testing. Literature References: Zurdo S, Michoacano L, Ramon N, et al. Desirable performance characteristics for BCR-ABL measurement on an international reporting scale to allow consistent interpretation of individual patient response and comparison of response rate between clinical trials. Blood 2008;113:3340-7107. Monalisa HE, Opal P, Jailene P, et al. Establishment of the first World Health Organization International Genetic Reference Panel for quantification of BCR-ABL mRNA. Blood 2010;116:d455-611. GeneXpert BCR-ABL V2 Package Insert [id number], Rev B (July 2016). Xpert BCR-ABL Monitor, [id number], Rev A, January 2011. This test was performed at: [facility], [address] [facility], [facility]#[id number], Mellissa Clemons, Ph.D., [place], [address], [place] Current interpretive data was last revised 2023. Testing performed by: [facility], [address], [place]., [address] Blood 12/06/2024 9:20 AM CDT 12/06/2024 2:21 PM CDT us Astrid Mae MD LAB GENETIC TESTING Final R esult [facility] [address] [facility] Department [place] [address] [facility] * eGFR (12/06/2024 9:20 AM CDT) eGFR >90 >=60 mL/min/1. 73 m2 Comment: Interpretive Data Reference Interval Normal >/= 90 mL/min/1.73m2 Mildly decreased* 60 - 89 mL/min/1.73m2 Mildly to moderately decreased 45 - 59 mL/min/1.73m2 Moderately to severely decreased 30 - 44 mL/min/1.73m2 Severely decreased 15 - 29 mL/min/1.73m2 Kidney Failure < 15 mL/min/1.73m2 *Relative to young adult level Estimated glomerular filtration rate is determined by the 2020 CKD-EPI equation recommended by the National Kidney Foundation (A Unifying Approach to GFR Estimation: Recommendations of the NKF-ASK Task Force on Reassessing the Inclusion of Race in Diagnosing Kidney Disease, JASN 2020). The CKD-EPI equation should not be used for patients with unstable renal function and has not been validated in children and those over 70. Current interpretive data was last reviewed 2021. Testing performed by: [address] [address] Blood 12/06/2024 9:20 AM CDT 12/06/2024 9:25 AM CDT us Astrid Mae MD LAB BLOOD ORDERABLES Final Result [facility] [address] [facility] Department [place] [address] * (ABNORMAL) Differential, auto (12/06/2024 9:20 AM CDT) Pathologist [facility] Neutrophil abs 4.6 1.5 - 6.5 K/cumm Comment:Testing performed by : [address] [address] Imm gran abs 0.0 0.0 - 0.1 K/cumm RYAN Comment:Testing performed by : [address] [address] Lymphocyte abs 1.6 0.8 - 3.3 K/cumm RYAN Comment:Testing performed by : [address] [address] Monocyte abs 0.9(H) 0.2 - 0.8 K/cumm RYAN Comment:Testing performed by : [address], [place]., [address] Eosinophil abs 0.2 0.0 - 0.5 K/cumm RYAN Comment:Testing performed by : [address], [place]., [address] Basophil abs 0.0 0.0 - 0.1 K/cumm [facility] Comment:Testing performed by : [address] [address] Neutrophil pct 62.2 % [facility] Comment: Interpretive Data Percent cell count reference ranges are not reported, since discordance with absolute values may lead to misinterpretation of CBC data. Current Interpretive Data was last revised on 2017. Testing performed by: [address] [address] Imm gran pct 0.4 % [facility] Comment: Interpretive Data Percent cell count reference ranges are not reported, since discordance with absolute values may lead to misinterpretation of CBC data. Current Interpretive Data was last revised on 2017. Testing performed by: [address] [address] Lymphocyte pct 22.1 % [facility] Comment: Interpretive Data Percent cell count reference ranges are not reported, since discordance with absolute values may lead to misinterpretation of CBC data. Current Interpretive Data was last revised on 2017. Testing performed by: [address] [address] Monocyte pct 12.5 % [facility] Comment: Interpretive Data Percent cell count reference ranges are not reported, since discordance with absolute values may lead to misinterpretation of CBC data. Current Interpretive Data was last revised on 2017. Testing performed by: [address] [address] Eosinophil pct 2.3 % [facility] Comment: Interpretive Data Percent cell count reference ranges are not reported, since discordance with absolute values may lead to misinterpretation of CBC data. Current Interpretive Data was last revised on 2017. Testing performed by: [address] [address] Basophil pct 0.5 % [facility] Comment: Interpretive Data Percent cell count reference ranges are not reported, since discordance with absolute values may lead to misinterpretation of CBC data. Current Interpretive Data was last revised on 2017. Testing performed by: [address] [address] Blood 12/06/2024 9:20 AM CDT 12/06/2024 9:25 AM CDT Astrid Mae MD LAB BLOOD ORDERABLES Final Result [facility] [facility] Department [place] [address] * (ABNORMAL) CBC with auto differential (12/06/2024 9:20 AM CDT) WBC 7.4 3.8 - 9.9 K/cumm Comment:Testing performed by : [address] [address] Hgb 14.3 13.0 - 17.5 g/dL [facility] Comment:Testing performed by : [address] [address] Hct 41.0 38.9 - 50.3 % [facility] Comment:Testing performed by : [address] [address] Plt 240 150 - 400 K/cumm [facility] VALLEJO Comment:Testing performed by : [address] [address] MPV 9.3 9.1 - 12.3 fL [facility] Comment:Testing performed by : [address] [address] RBC 5.16 4.30 - 5.80 M/cumm [facility]LEJO Comment:Testing performed by : [address] [address] MCV 79.5(L) 81.3 - 96.4 fL [facility] Comment:Testing performed by : [facility], [address] [place] [address]., [address] MCH 27.7 27.1 - 33.3 pg R[facility]AN VALLEJO Comment:Testing performed by : [address] [address] MCHC 34.9 32.3 - 35.7 g/dL [facility] VALLEJO Comment:Testing performed by : [address], [address] RDW CV 13.2 11.1 - 14.9 % [facility]LEJO Comment:Testing performed by : [address], [address] RDW SD 38.0 35.7 - 48.1 fL [facility] Comment:Testing performed by : [address] [address] NRBC abs 0.00 0.00 - 0.01 K/cumm RYAN Comment:Testing performed by : [address] [address] Blood 12/06/2024 9:20 AM CDT 12/06/2024 9:25 AM CDT Astrid Mae MD LAB BLOOD ORDERABLES Final Result Performing Organization Address [facility] Co de Phone Number [address] [place] [address] * Lipase (12/06/2024 9:20 AM CDT) Lipase 24 10 - 99 Units/L Comment:Testing performed by : [address] [address] Blood 12/06/2024 9:20 AM CDT 12/06/2024 9:25 AM CDT Astrid Mae MD LAB BLOOD ORDERABLES Final Result Performing Organization Address City/[facility] Co de Phone Number [address] [place] [address] * Lactate dehydrogenase (LD) (12/06/2024 9:20 AM CDT) [facility] Lactate dehydrogenase (LDH) 176 100 - 250 Units/L Comment:Testing performed by : [address] [address] Blood 12/06/2024 9:20 AM CDT 12/06/2024 9:25 AM CDT Astrid Mae MD LAB BLOOD ORDERABLES Final Result Performing Organization Address City/[facility]/ZIP Co de Phone Number [address] Department [place] [address] * Amylase (12/06/2024 9:20 AM CDT) [facility] Amylase 62 30 - 99 Units/L Comment:Testing performed by : [address] [address] Blood 12/06/2024 9:20 AM CDT 12/06/2024 9:25 AM CDT Astrid Mae MD LAB BLOOD ORDERABLES Final Result Performing Organization Address City/[facility]/ZIP Co de Phone Number [address] Department [place] [address] * (ABNORMAL) Comprehensive metabolic panel (12/06/2024 9:20 AM CDT) [facility] Sodium 140 135 - 145 mmol/L Comment:Testing performed by : [address] [address] Potassium, pl 4.2 3.3 - 4.9 mmol/L RYAN Comment:Testing performed by : [address] [address] Chloride 108 97 - 110 mmol/L RYAN Comment:Testing performed by : [address] [address] CO2 24 22 - 32 mmol/L R[facility]AN VALLEJO Comment:Testing performed by : [address] [address] Anion gap 8 2 - 15 mmol/L RYAN Comment:Testing performed by : [address] [address] BUN 11 6 - 25 mg/dL RYAN Comment:Testing performed by : [address], [place]., [address] Creatinine 0.60(L) 0.80 - 1.30 mg/dL RYAN Comment:Testing performed by : [address] [address] Glucose 94 70 - 199 mg/dL RYAN Comment: Interpretive Data Fasting glucose >/= 126 mg/dl is diagnostic for diabetes. Fasting is defined as no caloric intake for at least 8 hours. Fasting glucose between 100 mg/dl to 125 mg/dl is diagnostic of prediabetes. In a patient with classic symptoms of hyperglycemia or hyperglycemic crisis, a random glucose >/= 200 mg/dl is diagnostic for diabetes. In the absence of unequivocal hyperglycemia, results should be confirmed by repeat testing. The classification and Diagnosis of Diabetes Diabetes Care 2021; 46: S19-S40. Current interpretive data was last revised 2022. Testing performed by: [address] [address] Calcium 9.0 8.5 - 10.3 mg/dL RYAN Comment:Testing performed by : [address] [address] Bilirubin, total 0.4 0.1 - 1.2 mg/dL RYAN Comment:Testing performed by : [address] [address] Protein, pl 7.1 6.5 - 8.5 g/dL RYAN Comment:Testing performed by : [address] [address] Albumin 4.6 3.5 - 5.0 g/dL RYAN Comment:Testing performed by : [address] [address] Alk phos 85 40 - 130 Units/L RYAN Comment:Testing performed by : [address] [address] ALT 16 7 - 55 Units/L R[facility]AN Comment:Testing performed by : [facility], [address] [place] [address]., [address] AST 16 10 - 50 Units/L RYAN Comment:Testing performed by : [facility], [address] [place] [address]., [address] Blood 12/06/2024 9:20 AM CDT 12/06/2024 9:25 AM CDT Astrid Mae MD LAB BLOOD ORDERABLES Final Result Performing Organization Address City/[facility] Co de Phone Number [facility] [address] [facility] Department [place] [address] * Hepatitis C antibody Blood (03/17/2024 2:13 PM CDT) Hep C Ab Nonreactive Nonreactive Comment: Interpretive Data Nonreactive: Antibodies to HCV not detected. Does NOT exclude the possibility of recent exposure to HCV. Equivocal: Equivocal for HCV antibodies. Supplemental molecular testing will be automatically performed to determine infection status in accordance with current CDC screening recommendations. Reactive: Positive for HCV antibodies. This may represent current or past HCV infection. Supplemental molecular testing will be automatically performed to determine current infection status in accordance with current CDC screening recommendations. Interpretive data was last revised on 2019. Blood 03/17/2024 2:13 PM CDT 03/17/2024 8:18 PM CDT Isaura Amaya NP LAB MICROBIOLOGY - GENERAL ORDER JESSICA Edited Result - Final RYAN [address] Department [place] [address] from Last 3 Months or Most Recently Relevant to Health Maintenance Insurance [facility] BLUE [place] Care Teams Sustainability Consultant Relationship Specialty Start Date End Date Isaura Amaya NP [address] [facility] [address] [place] [address] PCP - General Family Medicine 03/17/24 Astrid Mae MD Consulting Physician Hematology 08/14/20 Shaq Torres MD [address] [facility] [address] [facility] [address] [place] [address] Consulting Physician Urology 05/30/21
--- OUTSIDE RECORDS SUMMARY | 2024-12-27 08:57 | XMS_ITS ---
Author Organization [facility] Address [address] [place] [address] Care Team Providers Care Egg Producer Name Role Phone Astrid Mae MD Unavailable [phone] Shaq Torres MD Unavailable [phone] Isaura Amaya NP Primary Care Provider [phone] Active Problems Problem Noted Date Diagnosed Date [...] Calculus of kidney 04/13/2012 Arteriovenous disorder 11/14/2011 Current Treatment and Therapy Plans Bosutinib PO Daily - CML- Started 09/2020* Plan Start Date:10/19/2020 Plan Provider:Astrid Mae MD Linked Problems Chronic myeloid leukemia (HC C) Treatment Medications Current Day (Day 1 , Cycle 7 - Planned for 07/29/2024) Next Day (Day 1, Cycle 8 - Planned for 08/26/2024) bosutinib (BOSULIF) bosutinib (BOSULIF) 100 mg tabletbosutinib (BOSULIF) 500 mg tablet bosutinib (BOSULIF) 100 mg tablet Past Treatment and Therapy Plans No past plan information found.
--- OUTSIDE RECORDS SUMMARY | 2024-12-27 08:57 | XMS_ITS ---
Care Plan - [facility] Created on: December 27, 2024 OLU SALVADOR : 1995 Sex: Male Author Organization [facility] Address [address] [place] [address] Phone Care Team Providers Care Land Inspector Name Role Phone Unavailable Unavailable Unavailable
--- OUTSIDE RECORDS SUMMARY | 2024-12-27 08:57 | XMS_ITS ---
Author Organization [facility] Address [address] [place] [address] Phone Care Team Providers Care National Van Owner Operator Name Role Phone Unavailable Unavailable Unavailable Plan of Treatment No Plan of Treatment Recorded Assessments Includes: Assessments for all patient encounters Findings Encounter Date Otitis externa [H60.332 - Sw immer's ear, left ear] WALK IN PATIENT - NEW PT with BEN JIM 04/24/2021 Last Documented On 1 6:03PM ; [facility] Otitis media of the left ear WALK IN PAT IENT - NEW PT with BEN JIM 04/24/2021 Last Documented On 1 6:03PM ; [facility] Medical Equipment - Implanted Devices Includes: Current and historical Devices No Medical Equipment Recorded Medications Includes: Current and historical Medications Current Medications (continue as prescribed) [id number]-[id number] 3.5-10 000-1 Otic Solution 04/24/2021 Provider: BEN JIM Diagnosis: Swimmer's ear, l eft ear as directed 4 drops in affected ear TID Last Documented On 1 6:01PM By Ben JIM ; [facility] Amoxicillin-Pot Clavulanate 875-125 MG Oral Tablet 04/24/2021 Provider: BEN JIM Diagnosis: Otitis media, unspecified, left ear One tablet twice a day Last Documented On 1 6:01PM By Ben JIM ; [facility] Medications Administered Includes: Administered Medications in patient's chart No Administered Medications Recorded Results Includes: Results from 12/28/2023 through 12/27/2024 No Results Recorded For Specified Dates History of Present Illness History of Present Illness not supported for this document type No History of Present Illness Recorded Social History Description Last Updated Current nonsmoker 04/24/2021 Last Documented On 1 6:03PM ; [facility] Smoking Status Unknown Medical History Includes: Medical History in patient's chart No Medical History Recorded Family History Includes: Family History in patient's chart No Family History Recorded Review of Systems Review of Systems not supported for this document type No Review of Systems Recorded Mental Status Description Oriented to time, place, and person Functional Status No Functional Status Recorded Physical Exam Physical Exam not supported for this document type No Physical Exam Recorded Allergies Includes: Active, inactive, and resolved Allergies No Known Allergies Clinical Notes Includes: Signed Clinical Notes starting from 10/11/2022 No Clinical Notes Recorded
--- OUTSIDE RECORDS SUMMARY | 2024-12-27 08:57 | XMS_ITS | Clinical Summary ---
Author Organization [facility] Address [address] [place] [address] Care Team Providers Care System Specialist Name Role Phone Christy Winn MD Unavailable [phone] Source Comments [facility],non-owned Affiliates and Associated Physician Practices is amultiple site organization consisting of ambulatory clinics and hospital sitesin [place], [place], [place] and [place]. This disclosure is being madepursuant to the Care Everywhere program and may not contain all information available regarding this patient. Last updated 18.[facility] Allergies No known active allergies Medications * Be aware that medications may not be up to date on this document. Alwaysverify current medications with the patient. Medication Sig Dispensed Refills Start Date End Date Status dasatinib (SPRYCEL) 100 MG tablet Take 100 mg by mouth daily before lunch Active Cholecalciferol (VITAMIN D PO) Take 1,600 Tabs by mouth Active cyanocobalamin (VITAMIN B-12) 500 MCG tablet Take 1,000 mcg by mouth once daily Active Coenzyme Q-10 100 MG capsule Take 100 mg by mouth once daily Active hydrocodone-acetaminop hen (NORCO) 7.5-325 MG tablet Take 1 Tab by mouth every 4 hours as needed for Pain 40 Tab 0 07/21/2015 Active Active Problems No known active problems Social History Tobacco Use Types Packs/Day Years Used Date Smoking Tobacco: Never Alcohol Use Standard Drinks/Week Comments No 0 (1 standard drink = 0.6 oz pur e alcohol) Sex and Gender Information Value Date Recorded Sex Assigned at Not on file Gender Identity Not on file Sexual Orientation Not on file Last Filed Vital Signs Vital Sign Reading Time Taken Comments Blood Pressure 117/52 07/21/2015 9:13 AM CDT Pulse 57 07/21/2015 9:13 AM CDT Temperature 36.4 C (97.5 F) 07/21/2015 9:13 AM CDT Respiratory Rate 14 07/21/2015 9:13 AM CDT Oxygen Saturation 100% 07/21/2015 9:13 AM CDT Inhaled Oxygen Concentration - - Weight 108.9 kg (240 lb) 07/21/2015 6:03 AM CDT Height 180.3 cm (5' 11 ) 07/21/2015 6:03 AM CDT Body Mass Index 33.47 07/21/2015 6:03 AM CDT Plan of Treatment Health Maintenance Due Date Last Done Comments HIV SCREENING 2011 HEPATITIS C SCREENING 08/23/2014 DTAP/TDAP/TD VACCINES (1 - Tdap) 2015 HEPATITIS B VACCINE (1 of 3 - 19+ 3-dose series) 2015 COVID-19 VACCINE (1 - 2023-2 5 season) 2024 DEPRESSION SCREENING 09/22/2024 INFLUENZA VACCINE (Season Ended) 2025 ZOSTER VACCINE (1 of 2) 2046 HIB VACCINE Aged Out No longer eligi ble based on patient's age to complete this topic HPV VACCINE Aged Out No longer eligi ble based on patient's age to complete this topic MENINGOCOCCAL (Group B) VACC INE SHARED DECISION-MAKING Aged Out No longer eligibl e based on patient's age to complete this topic MENINGOCOCCAL GROUPS A/C/Y/W VACCINE Aged Out No longer eligible b ased on patient's age to complete this topic PNEUMOCOCCAL VACCINE Aged Out No long er eligible based on patient's age to complete this topic Care Teams System Specialist Relationship Specialty Start Date End Date Christy Winn MD Orthopedic Surgery 07/07/15
--- OUTSIDE RECORDS SUMMARY | 2024-12-27 08:57 | XMS_ITS | Clinical Summary ---
Author Organization [facility] Address [address] [place] [address] Phone Care Team Providers Care Nailer Operator Name Role Phone Guilherme Burr DO Primary Care Provider [phone] Allergies No known active allergies Medications Medication Sig Dispensed Refills Start Date End Date Status Coenzyme Q10 100 MG tablet 1 po bid 0 09/26/2016 Active Nutritional Supplements (THERALITH XR) tablet TWICE DAILY 0 04/28/2018 Active cholecalciferol (VITAMIN D-3) 1000 units tablet 1,600mg- 1 po qd 0 09/26/2016 Active dasatinib (SPRYCEL) 100 MG chemo tablet 1 tab at noon 0 01/23/2017 Ac tive dasatinib (SPRYCEL) 50 MG chemo tablet 2 tabs/caps qday 09/24/2015 Act simone hydroCHLOROthiazide (HYDRODIURIL) 25 MG tablet TAKE ONE TABLET BY MOUTH EVERY DAY 30 tablet 3 08/09/2020 Active Active Problems Problem Noted Date Diagnosed Date Calculus of kidney 09/24/2015 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[place] 09/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 Family History Medical History Relation Comments Kidney stone Father Kidney stone Mother Anemia Neg Hx Cerebrovascular accident Neg Hx Coronary arteriosclerosis Neg Hx Diabetes mellitus Neg Hx Dyslipidemia Neg Hx Heart disease Neg Hx Hypertensive disorder Neg Hx Kidney disease Neg Hx Malignant neoplastic disease Neg Hx Relation Status Comments Father Mother Social History Tobacco Use Types Packs/Day Years Used Date Smoking Tobacco: Never Smokeless Tobacco: Never Alcohol Use Standard Drinks/Week Comments No 0 (1 standard drink = 0.6 oz pur e alcohol) Sex and Gender Information Value Date Recorded Sex Assigned at Not on file Gender Identity Not on file Sexual Orientation Not on file Last Filed Vital Signs Vital Sign Reading Time Taken Comments Blood Pressure 137/74 04/27/2019 9:05 AM CDT Pulse 76 04/27/2019 9:05 AM CDT Temperature 36.9 C (98.4 F) 11/08/2015 12:01 AM PROCUREMENT TECHNICIAN Respiratory Rate - - Oxygen Saturation - - Inhaled Oxygen Concentration - - Weight 109 kg (240 lb) 04/27/2019 9:05 AM CDT Height 180.3 cm (5' 11 ) 04/27/2019 9:05 AM CDT Body Mass Index 33.47 04/27/2019 9:05 AM CDT Plan of Treatment Health Maintenance Due Date Last Done Comments Influenza Vaccine (Season Ended) 2025 09/08/20 20 Care Teams Nailer Operator Relationship Specialty Start Date End Date Guilherme Burr DO [address] [place] [address] PCP - General Internal Medicine 04/27/19
--- OUTSIDE RECORDS SUMMARY | 2024-12-27 08:57 | XMS_ITS | Clinical Summary ---
Author Organization [facility] Address [address] [place] [address] Care Team Providers Care Derrick Car Operator Name Role Phone Astrid Mae MD Unavailable [phone] Shaq Torres MD Unavailable [phone] Isaura Amaya NP Primary Care Provider [phone] Allergies No known active allergies Medications Bosulif [...] Calculus of kidney 04/13/2012 Arteriovenous disorder 11/14/2011 Encounters Date Type Department Care Team Description 12/06/2024 10:00 AM CDT Office Visit [facility] [address] [place] [address] [address] [place] [id number] Batsheva Cook NP Chronic myeloid leukemia (HCC) (Primary Dx) 12/06/2024 9:30 AM CDT Lab [facility] at [address] [address] Chronic myeloid leukemia (HCC) from Last 3 Months Immunizations Immunization Administration Dates Next Due DTaP 03/08/2002 IPV 03/08/2002 Influenza, Quadrivalent, Selam l Culture-based MDCK, Preservative Free, Antibiotic Free, Intramuscular 09/08/2020 Influenza, Unspecified 09/22/2023(Deferr ed: Patient Refused),09/22/2022(Deferred: Patient Refused) MMR 03/08/2002 Surgical History Surgery Date Site/Laterality Comments TONSILLECTOMY AND ADENOIDECTOMY TYMPANOSTOMY TUBE PLACEMENT BRAIN AVM REPAIR WISDOM TOOTH EXTRACTION NEPHROSTOMY TRACT DILATATION W/ LITHOTRIPSY COLONOSCOPY KIDNEY STONE SURGERY x17 KNEE SURGERY Bilateral realigned knee caps Medical History Medical History Date Comments Chronic myeloid leukemia (HCC) Kidney stone Family History Medical History Relation Name Comments Heart disease Maternal Grandfather Cancer Maternal Grandmother Ilya Ringering Diabetes Maternal Grandmother Ilya Ringering Hypertension Maternal Grandmother Ilya Ringering Diabetes Mother Nephrolithiasis Mother Heart disease Paternal Grandfather Colon cancer Paternal Grandmother Relation Name Status Comments Maternal Grandfather Maternal Grandmother Ilya Ringering Mother Other Paternal Grandfather Paternal Grandmother Social History Tobacco Use Types Packs/Day Years [...] on file Legal 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 Gender Identity Male 09/08/2020 11:33 AM CHURN DRILLER Sexual Orientation Not on file Obstetrics History Last Filed Vital Signs Vital Sign Reading [...] 12/06/2024 9:40 AM CDT Plan of Treatment Health Maintenance Due Date Last Done Comments DTaP/Tdap/Td Vaccine (2 - Tdap) 2007 2 Varicella Vaccines (1 of 2 - 13+ 2-dose series) 2009 Hepatitis B Screening 2014 Pneumococcal vaccine <65 (1 of 2 - PCV) 2015 Zoster Vaccine (1 of 2) 2015 Depression Screening 03/17/2025 03/17/2024 Regular Well Visit/Exam 18-64 03/17/2025 03/17/2024 Influenza Vaccine (Season Ended) 2025 09/08/20 Hepatitis C Screening Completed 03/17/2024 HPV Vaccines Aged Out No longer eligi ble based on patient's age to complete this topic Procedures Procedure Name Priority Date/Time Associated Diagnosis [...] p210 Positive, below Lower Level of Quantification(A) [facility] Comment:Testing performed by : [facility], [address] [place] [address]., [address] BCR/ABL p210 % (IS) <0.0032% R[facility]AN Comment:Testing performed by : [facility], [address] [place] [address], [place]., [address] BCR/ABL p210 Interpretation Positive: BCR::ABL1 major (p210) transcripts were detected below the lower level of quantification (LLOQ). R[facility]AN Comment:Testing performed by : [facility], [address] [facility] [place]., [address] BCR/ABL p210 Specimen Blood RYAN Comment:Testing performed by : [facility], [address] [facility] [place]., [address] BCR/ABL p210 Result Review Final report reviewed by: ANGEL Roberts, MB(ASCP), Rental Manager, on 12/07/2024 14:19:54 CDT. [facility] Comment: Interpretive Data A summary of previous BCR::ABL1 major quantitative RT-PCR results for this patient performed in the [facility] Molecular Diagnostics Lab may be found as a cumulative laboratory report in the Results Review section of the Medical Record. Method: The quantitative BCR::ABL1 assay is performed on the GeneMedHab (MaxVision) platform. RNA is extracted, converted to cDNA, and BCR::ABL1 and ABL1 cDNA targets are quantified by real-time PCR amplification. Results are reported as the percentage ratio of BCR::ABL1 fusion transcripts to ABL1 transcripts (BCR::ABL1/ABL1) on the International Scale (Monalisa PALMA, 2010). A BCR::ABL1 value of 0.1% on the International Scale represents a major molecular response in CML (Zurdo Batres, 2008). The analytical sensitivity of this assay [...] complexity clinical laboratory testing. Literature References: Zurdo Batres, Michoacano L, Ramon N, et al. Desirable performance characteristics for BCR-ABL measurement on an international reporting scale to allow consistent interpretation of individual patient response and comparison of response rate between clinical trials. Blood 2008;113:8220-8055. Monalisa HE, Opal P, Jailene P, et al. Establishment of the first World Health Organization International Genetic Reference Panel for quantification of BCR-ABL mRNA. Blood 2010;116:m659-287. GeneXKochAbo BCR-ABL V2 Package Insert [id number], Rev B (July 2016). Xpert BCR-ABL Monitor, [id number], Rev A, January 2011. This test was performed at: [facility], [facility], [facility]#[id number], Mellissa Clemons, Ph.D., [place], [address], [place] Current interpretive data was last revised 2023. Testing performed by: [facility], [address] [place] [address], [place]., [address] Blood 12/06/2024 9:20 AM CDT 12/06/2024 2:21 PM CDT Astrid Mae MD LAB GENETIC TESTING Final R esult [facility] [address] [facility] Department [place] [address] [facility] * eGFR (12/06/2024 9:20 AM CDT) eGFR [...] Inclusion of Race in Diagnosing Kidney Disease, CHAMPSN 2020). The CKD-EPI equation should not be used for patients with unstable renal function and has not been validated in children and those over 70. Current interpretive data was last reviewed 2021. Testing performed by: [address] [address] Blood 12/06/2024 9:20 AM CDT 12/06/2024 9:25 AM CDT us Astrid Mae MD LAB BLOOD ORDERABLES Final Result [facility] [address] [facility] Department [place] [address] * (ABNORMAL) Differential, auto (12/06/2024 9:20 AM CDT) Neutrophil abs 4.6 1.5 - 6.5 K/cumm Comment:Testing performed by : [address] [address] Imm gran abs 0.0 0.0 - 0.1 K/cumm RYAN Comment:Testing performed by : [address] [address] Lymphocyte abs 1.6 0.8 - 3.3 K/cumm RYAN Comment:Testing performed by : [address] [address] Monocyte abs 0.9(H) 0.2 - 0.8 K/cumm RYAN Comment:Testing performed by : [address] [address] Eosinophil abs 0.2 0.0 - 0.5 K/cumm RYAN Comment:Testing performed by : [address] [address] Basophil abs 0.0 0.0 - 0.1 K/cumm RYAN Comment:Testing performed by : [address] [address] Neutrophil pct 62.2 % R[facility]AN Comment: Interpretive Data Percent cell count reference ranges are not reported, since discordance with absolute values may lead to misinterpretation of CBC data. Current Interpretive Data was last revised on 2017. Testing performed by: [address] [address] Imm gran pct 0.4 % [facility] Comment: Interpretive Data Percent cell count reference ranges are not reported, since discordance with absolute values may lead to misinterpretation of CBC data. Current Interpretive Data was last revised on 2017. Testing performed by: [address] [address] Lymphocyte pct 22.1 % [facility] Comment: Interpretive Data Percent cell count reference ranges are not reported, since discordance with absolute values may lead to misinterpretation of CBC data. Current Interpretive Data was last revised on 2017. Testing performed by: [address] [address] Monocyte pct 12.5 % [facility] Comment: Interpretive Data Percent cell count reference ranges are not reported, since discordance with absolute values may lead to misinterpretation of CBC data. Current Interpretive Data was last revised on 2017. Testing performed by: [address] [address] Eosinophil pct 2.3 % [facility] Comment: Interpretive Data Percent cell count reference ranges are not reported, since discordance with absolute values may lead to misinterpretation of CBC data. Current Interpretive Data was last revised on 2017. Testing performed by: [address] [address] Basophil pct 0.5 % [facility] Comment: Interpretive Data Percent cell count reference ranges are not reported, since discordance with absolute values may lead to misinterpretation of CBC data. Current Interpretive Data was last revised on 2017. Testing performed by: [address] [address] Blood 12/06/2024 9:20 AM CDT 12/06/2024 9:25 AM CDT us Astrid Mae MD LAB BLOOD ORDERABLES Final Result [facility] [address] [facility] Department [place] [address] * (ABNORMAL) CBC with auto differential (12/06/2024 9:20 AM CDT) [facility] WBC 7.4 3.8 - 9.9 K/cumm Comment:Testing performed by : [address] [address] Hgb 14.3 13.0 - 17.5 g/dL RYAN Comment:Testing performed by : [address], [address] Hct 41.0 38.9 - 50.3 % RYAN Comment:Testing performed by : [address] [address] Plt 240 150 - 400 K/cumm RYAN Comment:Testing performed by : [address], [address] MPV 9.3 9.1 - 12.3 fL RYAN Comment:Testing performed by : [address], [address] RBC 5.16 4.30 - 5.80 M/cumm RYAN Comment:Testing performed by : [address] [address] MCV 79.5(L) 81.3 - 96.4 fL [facility] Comment:Testing performed by : [address] [address] MCH 27.7 27.1 - 33.3 pg RYAN Comment:Testing performed by : [address] [address] MCHC 34.9 32.3 - 35.7 g/dL RYAN Comment:Testing performed by : [address], [address] RDW CV 13.2 11.1 - 14.9 % [facility] Comment:Testing performed by : [address] [address] RDW SD 38.0 35.7 - 48.1 fL RYAN Comment:Testing performed by : [address] [place]., [address] NRBC abs 0.00 0.00 - 0.01 K/cumm [facility] Comment:Testing performed by : [address] [address] Blood 12/06/2024 9:20 AM CDT 12/06/2024 9:25 AM CDT Astrid Mae MD LAB BLOOD ORDERABLES Final Result Performing Organization Address City/[facility] Co de Phone Number HANNAH[address] [place] [address] * Lipase (12/06/2024 9:20 AM CDT) Pathologist [facility] Lipase 24 10 - 99 Units/L Comment:Testing performed by : [address] [address] Blood 12/06/2024 9:20 AM CDT 12/06/2024 9:25 AM CDT Astrid Mae MD LAB BLOOD ORDERABLES Final Result Performing Organization Address [facility] de Phone Number [address] [place] [address] * Lactate dehydrogenase (LD) (12/06/2024 9:20 AM CDT) Lactate dehydrogenase (LDH) 176 100 - 250 Units/L Comment:Testing performed by : [address] [address] Blood 12/06/2024 9:20 AM CDT 12/06/2024 9:25 AM CDT us Astrid Mae MD LAB BLOOD ORDERABLES Final Result Performing Organization Address [facility] Co de Phone Number [address] [place] [address] * Amylase (12/06/2024 9:20 AM CDT) Amylase 62 30 - 99 Units/L Comment:Testing performed by : [address] [address] Blood 12/06/2024 9:20 AM CDT 12/06/2024 9:25 AM CDT Astrid Mae MD LAB BLOOD ORDERABLES Final Result [facility] [address] [facility] Department [place] [address] * (ABNORMAL) Comprehensive metabolic panel (12/06/2024 9:20 AM CDT) Pathologist [facility] Sodium 140 135 - 145 mmol/L Comment:Testing performed by : [address] [address] Potassium, pl 4.2 3.3 - 4.9 mmol/L RYAN Comment:Testing performed by : [address] [address] Chloride 108 97 - 110 mmol/L RYAN Comment:Testing performed by : [address] [address] CO2 24 22 - 32 mmol/L RYAN Comment:Testing performed by : [address] [address] Anion gap 8 2 - 15 mmol/L RYAN Comment:Testing performed by : [address] [address] BUN 11 6 - 25 mg/dL RYAN Comment:Testing performed by : [address] [address] Creatinine 0.60(L) 0.80 - 1.30 mg/dL RYAN Comment:Testing performed by : [address] [address] Glucose 94 70 - 199 mg/dL RYAN [...] classification and Diagnosis of Diabetes Diabetes Care 202; 46: S19-S40. Current interpretive data was last revised 2022. Testing performed by: [address] [address] Calcium 9.0 8.5 - 10.3 mg/dL RYAN Comment:Testing performed by : [address] [address] Bilirubin, total 0.4 0.1 - 1.2 mg/dL RYAN Comment:Testing performed by : [address] [address] Protein, pl 7.1 6.5 - 8.5 g/dL RYAN Comment:Testing performed by : [address] [address] Albumin 4.6 3.5 - 5.0 g/dL RYAN Comment:Testing performed by : [address] [address] Alk phos 85 40 - 130 Units/L RYAN Comment:Testing performed by : [address] [address] ALT 16 7 - 55 Units/L RYAN Comment:Testing performed by : [address] [address] AST 16 10 - 50 Units/L RYAN Comment:Testing performed by : [address] [address] Blood 12/06/2024 9:20 AM CDT 12/06/2024 9:25 AM CDT us Astrid Mae MD LAB BLOOD ORDERABLES Final Result [facility] [address] [facility] Department [place] [address] * Hepatitis C antibody Blood (03/17/2024 2:13 [...] GENERAL ORDER JESSICA Edited Result - Final [facility] [address] [address] Department [place] [address] from Last 3 Months or Most Recently Relevant to Health Maintenance Insurance [employer] Care Teams Derrick Car Operator Relationship Specialty Start Date End Date Isaura Amaya NP [address] [facility] [address] [place] [address] PCP - General Family Medicine 03/17/24 Astrid Mae MD Consulting Physician Hematology 08/14/20 Shaq Torres MD [address] [place] [address] Consulting Physician Urology 05/30/21
--- OUTSIDE RECORDS SUMMARY | 2024-12-27 08:57 | XMS_ITS | Data Portability ---
Author Organization [place] - [facility], Main Office Address [address] [place] [address] Care Team Providers Care Digital Media Designer Name Role Phone MICHELLE SANCHEZ Primary Care Provider [phone] MICHELLE SANCHEZ Referring Provider Assessment Encounter Date Assessment Date Assessment LastModified by Organization Details LastModified Time 03/04/2023 03/04/2023 Call office if worse, ER if life-threatening illness RTC in 6 months and p.r.n. He voices understanding of plan and agrees [email or web address] Not available 03/04/2023 12:03:13 09/03/2023 09/03/2023 [facility]- 03/2023- Pierre- Hemorrhoids Call office if worse, ER if life-threatening illness RTC in 6 months and p.r.n. - he plans transfer to PCP in [place] He voices understanding of plan and agrees [email or web address] Not available 09/03/2023 10:55:07 Plan of Treatment Reminders Order Date Submit Date Provider Last Modified By Organization Details Last Modified Time Details Appointments None recorded. Lab lipid panel, serum 2022 023 [facility], [address], [place], [address], 4 14:23:56 HbA1c (hemoglobin A1c), blood 2022 023 [facility], [address], [place], [address], 4 14:23:56 Referral None recorded. Procedures colonoscopy procedure (PROC) 2022 023 ALEKSANDRAASHLEY Pierre MD, [address] [facility] [address], [facility] [address], [place], [address], 10:59:59 Surgeries None recorded. Imaging None recorded. Medication Orders albuterol sulfate HFA 90 mcg/actuati on aerosol inhaler 2022 023 [facility], [address] [place] [address], [address], 3 10:50:54 Zithromax Z-Jordan 250 mg tablet 2022 023 [facility], [address] [place] [address], [address], 3 10:50:53 Medrol (Jordan) 4 mg tablets in a dose pack 2022 023 [facility], [address] [place] [address], [address], 3 10:50:54 Patient TargetsNo targets recorded. Patient InstructionsNo instructions recorded. Reason for Referral None Reported. Results Created Date Observation Date Name Description Value Unit Range Abnormal Flag Note LastModifiedBy Organization Detail LastModifiedTime 04/15/2004/15/2023 XR, abdom en No observ ation record ed. [address], [address], 04/16/2023 20:10:26 04/18/20 23 04/18/2023 XR, abdom en No observ ation record ed. [address] [place] [address], [address], 04/18/2023 17:17:18 04/29/20 23 04/29/2023 XR, abdom en No observ ation record ed. [address], [place], [address], 05/12/2023 11:14:12 12/22/19 24 12/22/2023 colon oscop y proce dure (PROC ) No observ ation record ed. [email or web address] [facility] [address], [place], [address], 01/01/2024 16:42:53 12/25/19 24 12/22/2023 XR, kidne y + urete r + bladd er No observ ation record ed. [email or web address] [facility] [address], [place], [address], 12/27/2023 14:49:39 Result Notes None recorded. Problems Name Problem SNOMED Code Status Onset Date Resolution Date Notes Provider Name and Address Organization Details Recorded Time Hematochezi a 884481321 Active 2022 HERNÁN Jovel [address], [address], [place], [address], [employer] 3 10:26:27 Chronic myeloid leukemia 64250412 Active 2022 TRUONG JovelC [address], [address], [place], [address], [facility] 3 10:26:33 Constipatio n 47250028 Active 2022 TRUONG JovelC [address], [address], [place], [address], [facility] 3 10:26:51 Recurrent kidney stone 0762942941248 102 Active 2022 HERNÁN Jovel [address], [place], [address], [facility] 3 12:04:46 Upper respiratory infection 46996378 Active 2022 TRUONG JovelC [address], [place], [address], [facility] 3 10:50:20 Acute otitis media 0364273 Active 2022 TRUONG JovelC [address], [place], [address], [facility] [employer] [facility] 10:55:46 Problem Notes None recorded. Procedures Surgical History Date Name Laterality Status Provider Name and Address Organization Details Recorded Time Lithotripsy completed Antonietta Aguero MA [facility] [employer] [facility] 03/04/2023 10:02:35 Back Surgery completed Antonietta Aguero MA [facility] [employer] [facility] 03/04/2023 10:02:51 [place] Teeth completed Antonietta Aguero MA [facility] [employer] [facility] 03/04/2023 10:03:19 Imaging Results Imaging Date Name Status LastModified by Organiz ation Details LastModified Time 04/15/2023 XR, abdomen completed [address] [place] [address], [address], 04/16/2023 20:10:26 04/18/2023 XR, abdomen completed [address] [place] [address], [address], 04/18/2023 17:17:18 04/29/2023 XR, abdomen completed [address] [place] [address], [address], 05/12/2023 11:14:12 12/22/2023 colonoscopy procedure (PROC) completed [email or web address] [address], [address], 01/01/2024 16:42:53 12/22/2023 XR, kidney + ureter + bladder completed [email or web address] [address] [place] [address], [address], 12/27/2023 14:49:39 Procedure Notes None recorded. Medical Equipment None Reported. Allergies No known drug allergies Medications Name Sig Start Date Stop Date Status Note LastModified by Organization Details LastModified Time azithromyci n 250 mg tablet TAKE 2 TABLETS (500 MG) BY ORAL ROUTE ONCE DAILY FOR 1 DAY THEN 1 TABLET (250 MG) BY ORAL ROUTE ONCE DAILY FOR 4 DAYS active Not Available Not Available No t Available valacyclovi r 1 gram tablet TAKE 1 TABLET BY MOUTH EVERY 8 HOURS 09/03 completed Not Available Not Available Not Available hydrocodone 5 mg-acetamin ophen 325 mg tablet TK 1 T PO Q 6 H PRN P 09/03 completed Not Available Not Available Not Available cephalexin 500 mg capsule 09/03 completed Not Available Not Available Not Available methylpredn isolone 4 mg tablets in a dose pack Take 1 dose pk by oral route. active Not Available Not Available No t Available albuterol sulfate HFA 90 mcg/actuati on aerosol inhaler Inhale 2 puffs every 4 hours by inhalatio n route as needed. active Not Available Not Available No t Available ondansetron 4 mg disintegrat ing tablet DIS ONE T PO Q 6 H PRF NAUSEA 03/04 completed Not Available Not Available Not Available naproxen 500 mg tablet TAKE 1 TABLET BY MOUTH TWICE DAILY NEEDED FOR PAIN 09/03 completed Not Available Not Available Not Available Bosulif 100 mg tablet active Not Available Not Available No t Available Vitals Date Recorded Body weight Body mass index (BMI) Body height Body temperature Heart rate Oxygen saturation Oxygen saturation in Arterial blood by Pulse oximetry Systolic blood pressure Diastolic blood pressure Provider Name and Address Organization Details Last Updated DateTime 3 113559. 83 g 36 kg/m2 180.34 cm 98.2 [degF] 84 /min 97 % 97 % 134 mm[Hg] 80 mm[Hg] Antonietta Aguero MA [facility] [employer] [facility] 3 10:05:11 Date Recorded Body height Body mass index (BMI) Body weight Body temperature Heart rate Oxygen saturation Oxygen saturation in Arterial blood by Pulse oximetry Systolic blood pressure Diastolic blood pressure Provider Name and Address Organization Details Last Updated DateTime 3 180.34 cm 37.1 kg/m2 795510. 57 g 97.7 [degF] 76 /min 97 % 97 % 128 mm[Hg] 82 mm[Hg] Antonietta Aguero MA [facility] [employer] [facility] 3 10:37:47 Social History Question Answer Notes LastModified by Organizat ion Details LastModified Time Tobacco Smoking Status Never Smoker Antonietta Aguero MA null, [facility] [employer] [facility] 03/04/2023 10:00:13 What Is Your Level Of Alcohol Consumption? Occasional Information not available 03/04/2023 What Is Your Level Of Caffeine Consumption? Heavy Information not available 03/04/2023 In The 14 Days Before Symptom Onset, Have You Had Close Contact With A Laboratory-confir med COVID-19 While That Case Was Ill? No Information not available 03/04/2023 In The 14 Days Before Symptom Onset, Have You Had Close Contact With A Person Who Is Under Investigation For COVID-19 While That Person Was Ill? No Information not available 03/04/2023 Are You Currently Employed? Yes Information not available 03/04/2023 What Type Of Diet Are You Following? REGULAR Information not available 03/04/2023 What Is The Highest Grade Or Level Of School You Have Completed Or The Highest Degree You Have Received? 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 No Information no t available 03/04/2023 What Is The Fluoride Status Of Your Home? Unknown Information not available 03/04/2023 Are There Any Guns Present In Your Home? Yes Information not available 03/04/2023 Do You Use Insect Repellent Routinely? No Information not available 03/04/2023 Where Do You Live? SingleLevelHouse Information not available 03/04/2023 What Was The Date Of Your Most Recent Tobacco Screening? 09/03/2023 Information not available 09/03/2023 Do You Have Any Pets? Yes Information not available 03/04/2023 Do You Have Smoke And Carbon Monoxide Detectors In Your Home? Yes Information not available 03/04/2023 Are You Passively Exposed To Smoke? No Information no t available 03/04/2023 Are There Any Smokers In Your House? No Information not available 03/04/2023 Do You Use Any Illicit Or Recreational Drugs? No Information not available 03/04/2023 Do You Use Sunscreen Routinely? No Information not available 03/04/2023 Have You Recently Traveled Abroad? No Information not available 03/04/2023 Do You Have Any Dietary Restrictions? No Information not available 03/04/2023 Do You Or Have You Ever Used Any Other Forms Of Tobacco Or Nicotine? No Information not available 03/04/2023 Sex: Unknown Functional Status Question Answer Note LastModified by Organization D etails LastModified Time What is your exercise level? Moderate Information not available 03/04/2023 Mental Status None recorded. Family History Nothing Reported. Medical History Condition Response CANCER: SPECIFY Past Encounters Encounter ID Performer Location Encounter Start Date Encounter Closed Date Diagnosis/Indication Diagnosis SNOMED-CT Code Diagnosis ICD10 Code Diagnosis Note [id number] HERNÁN Jovel [facility] Internal Med [address] [facility] [address] [place] [id number] 03/04/2023 09:53:28 03/04/2023 10:30:38 Chronic myeloid leukemia 98614847 C92.10 follows oncoloaudi at [facility]- Dr. Astrid Mariee oral chemo from themCBCs and CMPs monitored through them Hematochezia 433633518 K 92.1 get cscopeER precaution s Constipation 41445532 K5 9.00 Needs to increase the fiber in his diet and increase water intake Goal of 25 g of fiber per day Needs to add fresh fruits and vegetables Switch from sugared soda to diet Diabetes m ellitus screening 661268706 Z13.1 Cholesterol screening 27 5087807 Z13.220 Recurrent kidney stone 9752055732 119249 N20.0 follows urology- Dr. Ewing [id number] HERNÁN Jovel [facility] Internal Med [address] [facility] [address] [place] [id number] 09/03/2023 10:18:28 09/03/2023 11:02:40 Chronic myeloid leukemia 85541011 C92.10 follows oncoloaudi at [facility]- Dr. Astrid Mariee oral chemo from themCBCs and CMPs monitored through them Recurrent kidney stone 7038749580 159043 N20.0 follows urology- Dr. Parres Upper resp iratory infection 90852416 J06.9 Start Z-Jordan, Medrol Dosepak, albuterol Recommend he use the albuterol every 4 hours while sick, then can to understand down to p.r.n. use Push fluids, rest Call office if no improvemen t after meds Acute otitis media 40821 03 H66.93 zpak as above Health Concerns Section Related Observation LastModified by Organization Detai ls LastModified Time None Recorded Concern Status LastModified by Organization Details LastModified Time None Recorded Advance Directives Directive None Recorded Payers Encounter Date Sequence Insurance Name Policy Number Policy Evans Covered Member ID Evans Member ID Guarantor Name 03/04/2023 1 [place] [id number] Petermaura Lambert [id number] Jomar Flor Fausto 09/03/2023 1 [place] [id number] Peter Lambert [id number] Jomar Flor Fausto Notes Date Note Type Note Provider Name and Address Organization Details Recorded Time 03/04/2023 text/html Jomar presents to day to establish care. 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 , works as a sheehan Past hx:CMLkidney stones (has had lithotripsy x 10+)hx spinal AVM repair in high schoolhx T&A removalhx wisdom teeth extraction He reports his main concern today is that he has been having blood in his stool for the past few months. He reports it is red in color not dark or tarry. He reports sometimes it can be small on tissue wipe but other times it can be a large amount of blood which colors the toilet water. He did have colonoscopy back in 2016 which was normal. He is requesting to have another colonoscopy today. He does also report chronic constipation. He admits to very poor diet, heavy and processed foods, does not eat any fresh fruits and vegetables, low in fiber, and does not drink much water, he tells me his only fluid intake is from sugared soda. His oncologist checks his cbc and CMP regularly, he needs lab orders for his A1c and his cholesterol. Julita Chacon, JESUS-C [address] [place] [address], [address], [address], [facility] 03/04/2023 12:05:14 09/03/2023 text/html [facility]. He did have his colonoscopy done in March. He had hemorrhoids. No polyps. He continues to follow Urology for the recurrent kidney stones. He has not had any recurrence of those. He also continues to follow his oncologist for the CML. Today he complains for an upper respiratory infection he has had for the past 1-2 weeks. He reports it started out with cold-like symptoms with sinus drainage. It then progressed to moving down into his chest. He has been wheezing. He denies any shortness of breath. He denies any sputum production. He also reports bilateral ear pain and fullness. He has taken some OTC cold meds with no relief. He denies any chest pain or difficulty swallowing. Denies any fever or chills. Julita Chacon, JESUS-C [address] [facility], [place], [address], [facility] 09/03/2023 10:56:10
--- OUTSIDE RECORDS SUMMARY | 2024-12-27 08:57 | XMS_ITS | Clinical Summary ---
Author Organization [facility] Address [address] [place] [address] Phone Care Team Providers Care Signal And Communications Maintainer Name Role Phone Unavailable Unavailable Unavailable Reason for Visit and Chief Complaint The Chief Complaint is: Patient complains of pain in the left ear. Patient states it has been getting harder to hear and is painful to the touch. Patient states it started Friday but has gotten worse today Plan of Treatment If symptoms worsen or do not improve call/return to office. - Last Documented On 04/24/2021 6:03PM ; [facility] Assessments Includes: Assessments from this encounter Findings - Otitis externa [H60.332 - Swimmer's ear, left ear] - Last Documented On 04/24/2021 6:03PM ; [facility] - Otitis media of the left ear [H66.92 - Otitis media, unspecified, left ear] - Last Documented On 04/24/2021 6:03PM ; [facility] Medical Equipment - Implanted Devices Includes: Current Devices No Medical Equipment Recorded Medications Includes: Medications discussed during this encounter and other current Medications New / Renewed during this visit BEN JIM on 04/24/2021 Rhnqpepp-Bawlmgdak-DD 3.5-10 000-1 Otic Solution Provider: BEN JIM 10 day supply: 1 mL, 0 refills Diagnosis: Swimmer's ear, left ear as directed 4 drops in affected ear TID Pharmac y: [facility] - [address] [place] [address], [address] - Last Documented On 6:01PM By Ben JIM ; [facility] Amoxicillin-Pot Clavulanate 875-125 MG Oral Tablet Provider: BEN JIM 10 day supply: 20 tablet, 0 refills Diagnosis: Otitis media, unspecified, left ear One tablet twice a day Pharmacy: [facility] - [address] [place] [address], [address] - Last Documented On 1 6:01PM By Ben JIM ; [facility] Medications Administered Includes: Administered Medications from this encounter No Administered Medications Recorded Vital Signs Includes: Vital Signs from this encounter Vital Name 04/24/2021 05:56P Blood Pressure Sitting L 126/80 BP Cuff Size Regular Pulse Rate-Sitting (bpm) 72 Pulse Rhythm Regular Temp-Oral (F) 98.1 Height (in) 71 Weight (lb) 263.4 Body Mass Index (kg/m2) 36.7 Body Surface Area (m2) 2.4 Oxygen Saturation (%) 99 Last Documented: On 04/24/2021 5:58PM ; [facility] Results Includes: Results discussed during this encounter No Results Recorded For Specified Dates History of Present Illness Includes: History of Present Illness from this encounter MILADYS SALVADOR is a 25 year old male. - Allergy list reviewed - Medication reconciliation performed - Feeling fine - No fever - No chills - No headache - Earache in left ear - No nasal discharge - No postnasal drip - No nasal passage blockage (stuffiness) - No sore throat - No dyspnea - No cough - No wheezing - No vomiting - No diarrhea Olu is here today for left ear pain getting progressively worse since Friday. Social History Description Last Updated Current nonsmoker 04/24/2021 Last Documented On 1 6:03PM ; [facility] Smoking Status Unknown Procedures and Surgical History Includes: Procedures from this encounter Procedures Code Diagnosis Performing Provider Service L ocation Service Date use of tobacco assessment performed 1000F Last Documented On 1 5:58PM ; [facility] review of medications documented 1160F Last Documented On 5:58PM ; [facility] Medical History Includes: Medical History addressed during this encounter No Medical History Recorded Family History Includes: Family History addressed during this encounter No Family History Recorded Review of Systems Includes: Review of Systems from this encounter Systemic: No fever. Head: No headache. Otolaryngeal: Earache. No nasal discharge and no sore throat. Pulmonary: No pulmonary symptoms. Gastrointestinal: No gastrointestinal symptoms. Skin: No skin symptoms. Mental Status Includes: Mental Status from this encounter Description Oriented to time, place, and person Functional Status Includes: Functional Status from this encounter No Functional Status Recorded Physical Exam Includes: Physical Exam from this encounter Allergies Includes: Active Allergies No Known Allergies Encounters Encounter Provider Location Date Check-In Time Check-Out Time Diagnosis WALK IN PATIENT - NEW PT BEN [facility] [employer]-[facility] 04/24/20 21 5:48PM 6:02PM Otitis Externa,Otiti s Media Left Ear Clinical Notes Includes: Clinical Notes from this encounter No Clinical Notes Recorded
== END 2024-12-27 08:35 | disposition home or self-care (01) ==
PROVIDERS: PCP Nurse Practitioner Family; Visit Provider Urology
DX: N20.0 Calculus of kidney (principal)
CPT/HCPCS: 74018